=== PATIENT | female | born 1965 | race American Indian/Alaskan Native ===

== ENCOUNTER 2017-03-22 10:18 | Emergency (ER) | payer SELFPAY ==
[2017-03-22] MEDS ORDERED: SUBLIMAZE IV ONE (10:36)
[2017-03-22 11:11] LABS: Basophils % (Auto) 1.3 % (0.0-1.8); Eosinophils % (Auto) 1.6 % (0.0-4.3); Hematocrit 41.7 % (30.3-42.9); Hemoglobin 13.7 gm/dl (10.1-14.3); Mean Corpuscular HGB Conc 33 % (30-34); Mean Corpuscular Hemoglobin 28 pg (28-32); Mean Corpuscular Volume 84 fl (79-97); Platelet Count 214 K/mm3 (140-440); Red Blood Count 4.96 M/mm3 (3.65-5.03); Red Cell Distribution Width 15.9 % (13.2-15.2); White Blood Count 4.2 K/mm3 (4.5-11.0)
--- NOTE | 2017-03-22 11:19 | XRay Report ---
LEFT FOOT RADIOGRAPHS INDICATION: Left fifth metatarsal area pain. Forklift ran over left foot. COMPARISON: None similar. FINDINGS: AP, lateral and oblique left foot radiographs demonstrate intact bones, joints and soft tissues. Moderate plantar and small dorsal calcaneal spurs. Slight dorsal midfoot spurring as well. CONCLUSION: No acute left foot radiographic abnormality with degenerative spurring noted, as above. Thank you for the opportunity to participate in this patient's care.
[2017-03-22 11:20] LABS: Anion Gap 17 mmol/L; BUN/Creatinine Ratio 20; Blood Urea Nitrogen 10 mg/dL (7-17); Carbon Dioxide 26 mmol/L (22-30); Chloride 101.9 mmol/L (98-107); Glucose 82 mg/dL (65-100); Potassium 3.6 mmol/L (3.6-5.0); Sodium 141 mmol/L (137-145)
[2017-03-22] MEDS ORDERED: TENORMIN PO ONE (11:22)
[2017-03-22 11:23] LABS: INR 0.99 (0.87-1.13)
[2017-03-22 11:24] LABS: Partial Thromboplastin Time 35.3 Sec. (24.2-36.6)
[2017-03-22] MEDS ORDERED: NORCO 10/325 PO ONE (11:24)
--- NOTE | 2017-03-22 11:56 | Emergency Department Report ---
ED General Adult HPI - General Chief complaint: Extremity Injury, Lower Stated complaint: LT FRACTURED FOOT Time Seen by Provider: 03/22/17 10:30 Source: patient, EMS Mode of arrival: Stretcher Limitations: Physical Limitation - History of Present Illness Initial comments: Patient is a 51-year-old female past medical history of hypertension who presents with left foot pain. 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 She is complaining of severe pain in her left foot as a 10 out of 10. She hasn't tried putting weight on it but there is some swelling to the fifth distal mild tarsal. It is an achy type of pain that does not radiate. She didn't injure herself anywhere else she says moving her foot a lot makes it worse and nothing makes the pain better. Severity scale (0 -10): 6 - Related Data Previous Rx's Medication Instructions Recorded Last Taken Type Atenolol [Tenormin] 100 mg PO DAILY #30 tablet 07/11/14 07/27/15 Rx oxyCODONE /ACETAMINOPHEN [Percocet 1 - 2 tab PO Q6HR PRN #14 tablet 07/28/15 Unknown Rx 5/325] Acetaminophen 1,000 mg PO Q6HR PRN #30 capsule 03/22/17 Unknown Rx Allergies Allergy/AdvReac Type Severity Reaction Status Date / Time No Known Allergies Allergy Verified 07/11/14 02:32 ED Review of Systems ROS: Stated complaint: LT FRACTURED FOOT Other details as noted in HPI Constitutional: denies: chills, fever Eyes: denies: eye pain, eye discharge, vision change ENT: denies: ear pain, throat pain Respiratory: denies: cough, shortness of breath, wheezing Cardiovascular: denies: chest pain, palpitations Endocrine: no symptoms reported Gastrointestinal: denies: abdominal pain, nausea, diarrhea Genitourinary: denies: urgency, dysuria, discharge Musculoskeletal: as per HPI. denies: back pain, joint swelling, arthralgia Skin: denies: rash, lesions Neurological: denies: headache, weakness, paresthesias Psychiatric: denies: anxiety, depression Hematological/Lymphatic: denies: easy bleeding, easy bruising ED Past Medical Hx - Past Medical History Previous Medical History?: Yes Hx Hypertension: Yes Hx CVA: (TIA x 2) - Surgical History Additional Surgical History: x3 - Social History Smoking Status: Never Smoker Substance Use Type: None - Medications Home Medications: Home Medications Medication Instructions Recorded Confirmed Last Taken Type Atenolol [Tenormin] 100 mg PO DAILY #30 tablet 07/11/14 07/27/15 07/27/15 Rx oxyCODONE /ACETAMINOPHEN [Percocet 1 - 2 tab PO Q6HR PRN #14 tablet 07/28/15 Unknown Rx 5/325] Acetaminophen 1,000 mg PO Q6HR PRN #30 capsule 03/22/17 Unknown Rx ED Physical Exam - General Limitations: Physical Limitation General appearance: alert, in no apparent distress - Head Head exam: Present: atraumatic, normocephalic - Eye Eye exam: Present: normal appearance - ENT ENT exam: Present: mucous membranes moist - Neck Neck exam: Present: normal inspection - Respiratory Respiratory exam: Present: normal lung sounds bilaterally. Absent: respiratory distress - Cardiovascular Cardiovascular Exam: Present: regular rate, normal rhythm. Absent: systolic murmur, diastolic murmur, rubs, gallop - GI/Abdominal GI/Abdominal exam: Present: soft, normal bowel sounds - Extremities Exam Extremities exam: Present: other (swelling at distal left 5th metatarsal and swelling) - Back Exam Back exam: Present: normal inspection - Neurological Exam Neurological exam: Present: alert, oriented X3 - Psychiatric Psychiatric exam: Present: normal affect, normal mood - Skin Skin exam: Present: warm, dry, intact, normal color. Absent: rash ED Course Vital Signs 03/22/17 03/22/17 03/22/17 10:26 10:30 10:45 Pulse Rate Respiratory Rate Blood Pressure 225/119 232/124 Blood Pressure [Right] O2 Sat by Pulse 100 98 98 Oximetry 03/22/17 03/22/17 03/22/17 11:00 11:10 11:26 Pulse Rate 62 Respiratory 18 Rate Blood Pressure 216/106 206/114 Blood Pressure [Right] O2 Sat by Pulse 93 Oximetry 03/22/17 12:28 Pulse Rate 86 Respiratory 18 Rate Blood Pressure Blood Pressure 215/114 [Right] O2 Sat by Pulse 98 Oximetry ED Medical Decision Making - Lab Data Result diagrams: 03/22/17 10:45 03/22/17 10:45 Lab Results 03/22/17 03/22/17 03/22/17 Range/Units 10:45 10:45 10:45 WBC 4.2 L (4.5-11.0) K/mm3 RBC 4.96 (3.65-5.03) M/mm3 Hgb 13.7 (10.1-14.3) gm/dl Hct 41.7 (30.3-42.9) % MCV 84 (79-97) fl MCH 28 (28-32) pg MCHC 33 (30-34) % RDW 15.9 H (13.2-15.2) % Plt Count 214 (140-440) K/mm3 Lymph % (Auto) 32.1 (13.4-35.0) % [place] % (Auto) 7.9 H (0.0-7.3) % Eos % (Auto) 1.6 (0.0-4.3) % Baso % (Auto) 1.3 (0.0-1.8) % Lymph # 1.4 (1.2-5.4) K/mm3 [place] # 0.3 (0.0-0.8) K/mm3 Eos # 0.1 (0.0-0.4) K/mm3 Baso # 0.1 (0.0-0.1) K/mm3 Seg Neutrophils % 57.1 (40.0-70.0) % Seg Neutrophils # 2.4 (1.8-7.7) K/mm3 PT 13.6 (12.2-14.9) Sec. INR 0.99 (0.87-1.13) APTT 35.3 (24.2-36.6) Sec. Sodium 141 (137-145) mmol/L Potassium 3.6 (3.6-5.0) mmol/L Chloride 101.9 (98-107) mmol/L Carbon Dioxide 26 (22-30) mmol/L Anion Gap 17 mmol/L BUN 10 (7-17) mg/dL Creatinine 0.5 L (0.7-1.2) mg/dL Estimated GFR > 60 ml/min BUN/Creatinine Ratio 20 % Glucose 82 (65-100) mg/dL Calcium 9.0 (8.4-10.2) mg/dL - Radiology Data Radiology results: report reviewed, image reviewed Left foot x-ray: Shows no acute osseous abnormality left fifth metatarsal swelling - Medical Decision Making Chief medical diagnosis: Left fifth metatarsal or bone spur Differential diagnosis: Left fifth metatarsal fracture, left foot crush muscle injury I will get IV pain medicine, CBC, CMP, oral blood pressure medication, oral pain medication and x-ray of her left ankle. Patient has no fracture on x-ray was likely has just a bony spur I will send patient with postop shoe and oral pain medication and a work note. Discussed outpatient and she states that she will follow up with Dr. Arriola. Additional verbal discharge instructions were given. Critical care attestation.: If time is entered above; I have spent that time in minutes in the direct care of this critically ill patient, excluding procedure time. ED Disposition Clinical Impression: Left foot pain Foot contusion Qualifiers: Encounter type: initial encounter Laterality: left Qualified Code(s): S90.32XA - Contusion of left foot, initial encounter Disposition: - TO HOME OR SELFCARE Is pt being admited?: No Does the pt Need Aspirin: No Condition: Stable Instructions: Foot Contusion (ED) Prescriptions: Acetaminophen 1,000 mg PO Q6HR PRN #30 capsule PRN Reason: Pain Referrals: AMAN ARRIOLA MD [Staff Physician] - 3-5 Days
[2017-03-22 12:28] VITALS: BP 215/114
== END 2017-03-22 12:27 | disposition home or self-care (01) ==
LOC: ED 10:18
DX: S90.32XA Contusion of left foot, initial encounter (principal); I10 Essential (primary) hypertension; Z86.73 Personal history of transient ischemic attack (TIA), and cerebral infarction without residual deficits; W22.8XXA Striking against or struck by other objects, initial encounter; Y93.89 Activity, other specified; Y92.89 Other specified places as the place of occurrence of the external cause; Y99.8 Other external cause status
CPT/HCPCS: 36415; 73630; 80048; 85025; 85610; 85730; 96374; 99284; J3010

== ENCOUNTER 2019-09-14 19:16 | Inpatient (IN) | payer OTHER, SELFPAY ==
[2019-09-14] MEDS ORDERED: NITROGLYCERIN 2% OINT 1 GM TP ONE (19:33)
[2019-09-14] MEDS ORDERED: ASPIRIN 325 MG TAB PO ONE (19:33)
--- NOTE | 2019-09-14 19:40 | Emergency Department Report ---
HPI - General Chief Complaint: Chest Pain Time Seen by Provider: 09/14/19 19:19 - [facility] HPI: Room 1 The patient is a 54-year-old female present with a chief complaint of chest pain. Patient reportedly was in this ED last week with chest pain and went into V. fib arrest and was resuscitated. Patient went home on a LifeVest. The patient states today she developed substernal chest pain that was sharp and constant in nature associated with shortness of breath, nausea/vomiting and diaphoresis. ED Past Medical Hx - Past Medical History Previous Medical History?: Yes Hx Hypertension: Yes Hx CVA: Yes - Surgical History Additional Surgical History: 3 C-sections, lower extremity vascular surgery - Family History Family history: no significant - Social History Smoking Status: Former Smoker (None x3 months) Substance Use Type: None (Denies illicit drug use) - Medications Home Medications: Home Medications Medication Instructions Recorded Confirmed Last Taken Type Aspirin [Aspirin BABY CHEW TAB] 81 mg PO QDAY #30 tab.chew 02/06/13 12/20/13 12/13/13 Rx Clonidine HCl [Catapres] 0.1 mg PO BID 08/16/13 12/20/13 08/15/13 History atenoloL [Tenormin] 50 mg PO DAILY #60 tab 12/20/13 Unknown Rx ED Review of Systems ROS: Stated complaint: CHEST PAIN Other details as noted in HPI Constitutional: diaphoresis Eyes: denies: eye pain ENT: denies: throat pain Respiratory: shortness of breath Cardiovascular: chest pain Endocrine: no symptoms reported Gastrointestinal: nausea, vomiting Genitourinary: denies: dysuria Musculoskeletal: denies: back pain Neurological: denies: headache Physical Exam - Physical Exam Physical Exam: GENERAL: The patient is well-developed well-nourished female sitting on stretcher not appearing to be in acute distress. [] HEENT: Normocephalic. Atraumatic. Extraocular motions are intact. Patient has moist mucous membranes. NECK: Supple. Trachea midline CHEST/LUNGS: Clear to auscultation. There is no respiratory distress noted. HEART/CARDIOVASCULAR: Regular. There is no tachycardia. There is no gallop rub or murmur. ABDOMEN: Abdomen is soft, nontender. Patient has normal bowel sounds. There is no abdominal distention. SKIN: There is no rash. There is no edema. Open wounds to the right lower extremity NEURO: The patient is awake, alert, and oriented. The patient is cooperative. The patient has normal speech MUSCULOSKELETAL: There is no evidence of acute injury. ED Course - Reevaluation(s) Reevaluation #1: 09/14/19 19:47 Called to room by nursing. Patient had episode of unresponsiveness. Patient immediately responds after sternal rub. No ectopy or dysrhythmia noted on the monitor. No report of LifeVest shocking. Patient appeared dazed but states "I am good." Patient denies complaints Patient hypertensive and tachycardic. Labetalol 20 mg IV ordered - Consultations Consultation #1: 09/14/19 20:35 Cardiology paged 09/14/19 20:[address] Da Silva, including episodes of unresponsiveness, EKG and troponin ED Medical Decision Making - Lab Data Result diagrams: 09/14/19 19:53 09/14/19 19:53 Laboratory Tests 09/14/19 09/14/19 09/14/19 19:53 19:53 19:53 WBC 9.5 RBC 3.21 L Hgb 9.0 L Hct 27.8 L MCV 87 MCH 28 MCHC 32 RDW 17.3 H Plt Count 333 PT 15.8 H INR 1.24 H APTT 28.8 Sodium 140 Potassium 3.2 L Chloride 103.9 Carbon Dioxide 17 L Anion Gap 22 BUN 6 L Creatinine 0.8 Estimated GFR > 60 BUN/Creatinine Ratio 8 Glucose 111 H Calcium 8.4 Total Creatine Kinase 134 CK-MB (CK-2) 6.1 H CK-MB (CK-2) Rel Index 4.5 H Troponin T NT-Pro-B Natriuret Pep 09/14/19 19:53 WBC RBC Hgb Hct MCV MCH MCHC RDW Plt Count PT INR APTT Sodium Potassium Chloride Carbon Dioxide Anion Gap BUN Creatinine Estimated GFR BUN/Creatinine Ratio Glucose Calcium Total Creatine Kinase CK-MB (CK-2) CK-MB (CK-2) Rel Index Troponin T 1.370 H* NT-Pro-B Natriuret Pep 9859 H - EKG Data -: EKG Interpreted by Me EKG shows normal: sinus rhythm Rate: normal - EKG Data When compared to previous EKG there are: previous EKG unavailable Interpretation: other (ST depression in leads I, aVL, V3, V4, V5, V6) - Radiology Data Radiology results: report reviewed (Chest x-ray), image reviewed (Chest x-ray) interpreted by me: Chest x-ray-left lung haziness but no definite focal infiltrates. No pneumothorax Findings [facility] [address] [place] [address] XRay Report Signed Patient: JOSE VALENCIA MR# : [id number] : 1965 Acct:[id number] Age/Sex: 54 / F ADM Date: 09/14/19 Loc: ED Attending Dr: Ordering Physician: JOSE SHEEHAN MD Date of Service: 09/14/19 Procedure(s): XR chest 1V ap Accession Number(s): [id number] cc: JOSE SHEEHAN MD Fluoro Time In Minutes: CHEST 1 VIEW, 09/14/2019 6:50 PM CLINICAL INFORMATION/INDICATION: Chest pain COMPARISON: Chest radiograph, 02/02/2013 FI NDINGS: SUPPORT DEVICES: None. HEART: The cardiac silhouette is upper limits of normal in size. LUNGS/PLEURA: The lungs are clear of focal airspace disease or significant pleural effusion. ADDITIONAL FINDINGS: No additional acute findings. IMPRESSION: 1. No evidence of acute cardiopulmonary process. Signer Name: Funmilayo Mejia MD Signed: 09/14/2019 7:55 PM Workstation Name: [id number] Transcribed By: EB Dictated By: Funmilayo Mejia MD Electronically Authenticated By: Funmilayo Mejia MD Signed Date/Time: 09/14/191954 DD/ 53 TD/TT: - Differential Diagnosis ACS, pericarditis,, GERD, dysrhythmia Critical care attestation.: If time is entered above; I have spent that time in minutes in the direct care of this critically ill patient, excluding procedure time. ED Disposition Clinical Impression: Elevated troponin, Chest pain, Altered mental status Disposition: -09 OP ADMIT IP TO THIS HOSP Is pt being admited?: Yes Does the pt Need Aspirin: Yes Condition: Fair Instructions: Chest Pain (ED) Referrals: MCLEOD BIGGCITLALI STEWART MD [Primary Care Provider] - 3-5 Days Time of Disposition: 21:41 (Hospitalist paged (Dr. Kira Roque))
--- NOTE | 2019-09-14 20:00 | XRay Report ---
CHEST 1 VIEW, 09/14/2019 6:50 PM CLINICAL INFORMATION/INDICATION: Chest pain COMPARISON: Chest radiograph, 02/02/2013 FINDINGS: SUPPORT DEVICES: None. HEART: The cardiac silhouette is upper limits of normal in size. LUNGS/PLEURA: The lungs are clear of focal airspace disease or significant pleural effusion. ADDITIONAL FINDINGS: No additional acute findings. IMPRESSION: 1. No evidence of acute cardiopulmonary process. Signer Name: Funmilayo Mejia MD Signed: 09/14/2019 7:55 PM Workstation Name: [id number]
[2019-09-14 20:08] LABS: Hematocrit 27.8 % (30.3-42.9); Mean Corpuscular HGB Conc 32 % (30-34); Mean Corpuscular Volume 87 fl (79-97); Platelet Count 333 K/mm3 (140-440); Red Blood Count 3.21 M/mm3 (3.65-5.03); Red Cell Distribution Width 17.3 % (13.2-15.2)
[2019-09-14 20:14] LABS: INR 1.24 (0.87-1.13)
[2019-09-14 20:15] LABS: Partial Thromboplastin Time 28.8 Sec. (24.2-36.6)
[2019-09-14 20:24] LABS: Creatine Kinase MB 6.1 ng/mL (0.0-4.0)
[2019-09-14 20:25] LABS: BUN/Creatinine Ratio 8; Blood Urea Nitrogen 6 mg/dL (7-17); Calcium 8.4 mg/dL (8.4-10.2); Hemolysis Index 3
[2019-09-14 20:50] LABS: Chol/HDL Ratio 3.23 %
[2019-09-14 20:53] LABS: RBC Morphology Normal; Total Cells Counted 100
--- NOTE | 2019-09-14 23:13 | History and Physical Report ---
History of Present Illness History of present illness: 54-year-old woman with history of hypertension, CVA, CHF, coronary artery disease, peripheral vascular disease, status post recent cardiac arrest with LifeVest on was brought to the emergency room for evaluation. Patient complains of chest pain in the left chest which he describes as sharp pain, constant, intensity 5/10, no radiation, cannot identify exacerbating factors. Admits to nausea vomiting, shortness of breath. The patient was just discharged from the hospital 2 days ago where she came in for chest pain and had a V. fib cardiac arrest. After the cardiac arrest she is been having problems with her memory. She does not remember her hospital course or being hospitalized last month where she received a cardiac cath. ER physician stated that the patient had an episode of decreased responsiveness in the ER, responsive to sternal rub. patient will be admitted for chest pain evaluation Review Of Systems: Constitutional: no weight loss, fever, chills Ears, eyes, nose, mouth and throat: no nasal congestion, no nasal discharge, no sinus pressure, blurry vision, diplopia Neck: No neck pain or rigidity. Cardiovascular: No palpitations Respiratory: No shortness of breath, cough Gastrointestinal: No hematochezia Genitourinary : no dysuria, frequency Musculoskeletal: no muscle ache , joint pain Integumentary: no rash, no pruritis Neurological: no parathesias, focal weakness Endocrine: no cold or heat intolerance, no polyuria or polydipsia Hematologic/Lymphatic: no easy bruising, no easy bleeding, no gland swelling Allergic/Immunologic: no urticaria, no angioedema. PAST MEDICAL HISTORY: hypertension, CVA, CHF, coronary artery disease, peripheral vascular disease, status post recent cardiac arrest with LifeVest on PAST SURGICAL HISTORY: Femoropopliteal, fasciotomy SOCIAL HISTORY: Denies alcohol, tobacco, drugs FAMILY HISTORY: Hypertension PUI?: No Medications and Allergies Allergies Allergy/AdvReac Type Severity Reaction Status Date / Time No Known Allergies Allergy Verified 08/03/13 20:05 Home Medications Medication Instructions Recorded Confirmed Last Taken Type Clonidine HCl [Catapres] 0.3 mg PO BID 08/16/13 12/20/13 08/15/13 History Exam - Physical Exam Narrative exam: Gen. appearance: Patient lying in bed, no apparent distress HEENT: Normocephalic, atraumatic, pupils equally round and reactive to light, extraocular movement intact, and no sclericterus,. No JVD or thyromegaly or nodule,neck supple, no carotid bruit ,mucous membranes moist, no exudate or erythema Heart: S1, S2, regular rate and rhythm Lungs: Clear bilaterally, breathing comfortable Abdomen: Positive bowel sounds, nontender, nondistended, no organomegaly Extremity: Right leg with a large medial wound and is smaller on the lateral aspect of the leg, wound bed is clean no edema, cyanosis, clubbing Skin: No rash, nodules, warm, dry Neuro: Cranial nerves II to XII intact, speech is fluent, moves extremities, sensory intact - Constitutional Vitals: Temp Pulse Resp BP Pulse Ox 98.9 F 85 16 183/89 97 09/14/19 19:27 09/14/19 22:30 09/14/19 22:30 09/14/19 22:30 09/14/19 22:30 Results - Labs CBC & Chem 7: 09/14/19 19:53 09/14/19 19:53 Labs: Abnormal lab results 09/14/19 09/14/19 09/14/19 Range/Units 19:53 19:53 19:53 RBC 3.21 L (3.65-5.03) M/mm3 Hgb 9.0 L (10.1-14.3) gm/dl Hct 27.8 L (30.3-42.9) % RDW 17.3 H (13.2-15.2) % Monocytes % (Manual) 11.0 H (0.0-7.3) % Monocytes # (Manual) 1.0 H (0.0-0.8) K/mm3 PT 15.8 H (12.2-14.9) Sec. INR 1.24 H (0.87-1.13) Potassium 3.2 L (3.6-5.0) mmol/L Carbon Dioxide 17 L (22-30) mmol/L BUN 6 L (7-17) mg/dL Glucose 111 H (65-100) mg/dL CK-MB (CK-2) 6.1 H (0.0-4.0) ng/mL CK-MB (CK-2) Rel Index 4.5 H (0-4) Troponin T (0.00-0.029) ng/mL NT-Pro-B Natriuret Pep (0-900) pg/mL HDL Cholesterol (40-59) mg/dL 09/14/19 Range/Units 19:53 RBC (3.65-5.03) M/mm3 Hgb (10.1-14.3) gm/dl Hct (30.3-42.9) % RDW (13.2-15.2) % Monocytes % (Manual) (0.0-7.3) % Monocytes # (Manual) (0.0-0.8) K/mm3 PT (12.2-14.9) Sec. INR (0.87-1.13) Potassium (3.6-5.0) mmol/L Carbon Dioxide (22-30) mmol/L BUN (7-17) mg/dL Glucose (65-100) mg/dL CK-MB (CK-2) (0.0-4.0) ng/mL CK-MB (CK-2) Rel Index (0-4) Troponin T 1.370 H* (0.00-0.029) ng/mL NT-Pro-B Natriuret Pep 9859 H (0-900) pg/mL HDL Cholesterol 38 L (40-59) mg/dL - Imaging and Cardiology EKG: image reviewed Chest x-ray: report reviewed Assessment and Plan Assessment Chest pain/CAD Check cardiac enzymes, consult cardiology Continue her cardiac medications, start heparin drip Troponin trending up from discharge, it was 1.12 Lower extremity wounds Consult wound care Patient was discharged on oral antibiotics, restart these Episode of decreased responsiveness Consult neurology, check CT head Hypertension Continue outpatient medication, add IV hydralazine CHF, stable DVT prophylaxis
[2019-09-14] MEDS ORDERED: ONDANSETRON 4 MG/2 ML INJ IV PRN (23:31)
[2019-09-14] MEDS ORDERED: ACETAMINOPHEN 325 MG TAB PO PRN (23:31)
[2019-09-14] MEDS ORDERED: hydrALAZINE 20 MG/1 ML INJ IV PRN (23:42)
[2019-09-15 00:29] LABS: Creatine Kinase MB 5.6 ng/mL (0.0-4.0)
[2019-09-15 00:46] LABS: Amphetamine Screen,Urine PRESUMPTIVE NEGATIVE; Benzodiazepines Screen,Urine PRESUMPTIVE NEGATIVE; Cannabinoid Screen,Urine PRESUMPTIVE NEGATIVE; Cocaine Screen,Urine PRESUMPTIVE NEGATIVE; Methadone Screen,Urine PRESUMPTIVE NEGATIVE; Opiate Screen,Urine PRESUMPTIVE NEGATIVE
[2019-09-15] MEDS ORDERED: HEPARIN/ 0.45% NACL DRIP 25,000 UNIT/500 ML BAG IV SCH (01:00)
[2019-09-15 01:40] LABS: INR 1.2 (0.87-1.13); Partial Thromboplastin Time 30.6 Sec. (24.2-36.6)
[2019-09-15] MEDS ORDERED: IBUPROFEN 400 MG TAB PO ONE ×2 (01:46→01:47)
--- NOTE | 2019-09-15 03:35 | Cat Scan Report ---
CT HEAD WITHOUT CONTRAST INDICATION / CLINICAL INFORMATION: DECREASED RESPONSIVENESS. TECHNIQUE: All CT scans at this location are performed using CT dose reduction for ALARA by means of automated e xposure control. COMPARISON: CT dated 09/10/19 FINDINGS: HEMORRHAGE: None. EXTRA-AXIAL SPACES: Normal in size and morphology for the patient's age. VENTRICULAR SYSTEM: Normal in size and morphology for the patient's age. CEREBRAL PARENCHYMA: Left frontoparietal encephalomalacia is unchanged. No acute territorial infarct. MIDLINE SHIFT OR HERNIATION: None. CEREBELLUM / BRAINSTEM: No significant abnormality. ORBITS: Normal as visualized. SOFT TISSUES of HEAD: No significant abnormality. CALVARIUM: No significant abnormality. PARANASAL SINUSES / MASTOID AIR CELLS: Left sphenoid sinus mucous retention cyst is unchanged. ADDITIONAL FINDINGS: None. IMPRESSION: 1. No acute intracranial abnormality. . Chronic and age-related findings. No significant change. Signer Name: Juancarlos Singleton MD Signed: 09/15/2019 3:30 AM Workstation Name: [id number]
[2019-09-15] MEDS ORDERED: METOPROLOL TARTRATE 50 MG TAB ONE (04:03)
[2019-09-15] MEDS: METOPROLOL TARTRATE 50 MG TAB PO SCH ×2 (04:07→13:06)
[2019-09-15] MEDS ORDERED: ONDANSETRON 4 MG/2 ML INJ ONE (04:48)
[2019-09-15] MEDS ORDERED: HEPARIN/ 0.45% NACL DRIP 25,000 UNIT/500 ML BAG ONE (05:38)
[2019-09-15 05:45] LABS: Hematocrit 24.3 % (30.3-42.9); Hemoglobin 7.9 gm/dl (10.1-14.3); Mean Corpuscular HGB Conc 33 % (30-34); Mean Corpuscular Volume 87 fl (79-97); Platelet Count 283 K/mm3 (140-440); Red Blood Count 2.79 M/mm3 (3.65-5.03); Red Cell Distribution Width 17.1 % (13.2-15.2)
[2019-09-15] MEDS: VANCOMYCIN 250 MG/10 ML ORAL LIQD PO SCH ×3 (05:56→18:11)
[2019-09-15 06:51] LABS: Anisocytosis 1+; Band Neutrophils # (Manual) 0.1 K/mm3; Basophils % (Manual) 0 % (0.0-1.8); Eosinophils % (Manual) 0 % (0.0-4.3); Total Cells Counted 100
[2019-09-15 06:52] LABS: Platelet Estimate Consistent w Auto
[2019-09-15 06:57] LABS: Creatine Kinase MB 5.8 ng/mL (0.0-4.0)
[2019-09-15 07:01] LABS: BUN/Creatinine Ratio 8; Blood Urea Nitrogen 6 mg/dL (7-17); Hemolysis Index 0
--- NOTE | 2019-09-15 07:58 | Progress Note ---
Assessment and Plan Assessment and plan: Patient is a 54 yo woman with a history of hypertension, CHF, TIA and PAD who presented to [facility] ED with chest pains, SOB that started around 10 am day prior to admission. She recently had some type of procedure to the veins of her right leg about 1 week ago. Patient went into cardiac arrest due to V. fib. Patient underwent 2 rounds of ACLS protocol with 2 de-fibrillations and given Epinephrine, Amiodarone and pulse restored. It appears patient was in Atrial fibrillation with RVR and Amiodarone drip was started. Patient start having myoclonic jerks after. CTA chest IMPRESSION: 1. No evidence of pulmonary embolus or acute pulmonary disease. CT head without contrast IMPRESSION: 1. Chronic ischemic changes in the left parietal cortex. 2. No acute intracranial abnormality. 3. Left maxillary and sphenoid sinus disease. pCXR IMPRESSION: 1. No acute findings. 2. Satisfactory support device po sitioning. meds received so far: Etomidate/Rocuronium/heparin/mag sulfate/lopressor IV/Levophed/IVF/diprivan gtt/Amiodarone/rocephin/Versed recurrent CP after NSTEMI with Cardiac arrest: Cardiology is aware, treat medically for now, treat with IV heparin, ECHO Acute on chronic systolic heart failure poa: treat medically Acute Respiratory Failure, on MV via ETT: consult [facility] Afib with RVR: Echo and treat with IV Amiodarone, Xarelto DVT lower extermity by history on Xarelto Anemia with a drop in HCT: consult GI s/p prior Myoclonic jerks after Cardiac arrest on 09/10/19, due to Anoxic brain injury: koby stopped by Neurology, was unable to get EEG last admission due to glued on wig NSVT: Cardiology following Surgery on the right leg with wound VAC: Consult wound care, return to [facility] Hypokalemia: replete C. diffe colitis with +FOBT, poa: on oral vancomycin (maybe affordable issues), consult GI full code 09/11/19: Patient had cardiac arrest was intubated then later extubated on 09/10/19 currently awake and talking, her main compliant is diarrhea which was poa. Will send off for C.diffe as just underwent left lower extremity fasciotomy for gangrene and currently has bandage on medial lower left leg at [facility]. Will treat with empiric IV Flagyl for c.diffe. 09/12/19: 5 beat run of NSVT, replete potassium with IV magnesium, LifeVest pending, Cdiffe and FOBT uncollected because patient using bathroom on the bed without warning due to mental dysfunction, d/w RN 09/13/19: I D/C today, +C.diffe colitis, a/o x 3 today, mental health improving. Cleared for d/c per Cardiology. 09/15/19: Patient returns to ED with chest pains last night, she has 2 different account numbers, old medical record is [id number]; she is having cognitive issues since the NSTEMI cardiac arrest, so her memory is impaired. Period of unresponsiveness in ED, ?seizure related, will order EEG and consult Neurologist. I have ordered case management to combine medical records. I spoke with her pharmacy yesterday at [facility] and they had to order the oral Vancomycin, so she has not started on this therapy for c.diffe +FOBT (on old medical record), Consult GI for the anemia, on heparin IV drip, will stop, Await Cardiology evaluation. Replete potassium. It appears patient had a C in [facility] please see Dr. Da Silva's note under the old medical record number last admission. She has significant old right leg wound from recent Femoral bypass surgery at [facility] and her main compliant is leg pains. History Interval history: Patient was seen and examined. Follow-up on current diagnosis of chest pains. Overnight uneventful as no events directly reported to me. Imaging, nursing note, chart, labs and old chart reviewed. Discussed with patient. PUI?: No Hospitalist Physical - Physical exam Narrative exam: Gen: WDWN, NAD, Awake, Alert, Orientated but periods of confusion and poor memory recall. HEENT: NCAT, EOMI, PERRL, OP Clear Neck: supple, no adenopathy, no thyromegaly, no JVD CVS/Heart: RRR, normal S1S2, pulses present bilaterally Chest/Lungs: CTA B, Symmetrical chest expansion, good air entry bilaterally GI/Abdomen: soft, NTND, good bowel sounds, no guarding or rebound /Bladder: no suprapubic tenderness, no CVA or paraspinal tenderness Extermity/Skin: no c/c/e, no obvious rash MSK: FROM x 4 Neuro: CN 2-12 grossly intact, no new focal deficits Psych: calm - Constitutional Vitals: Temp Pulse Resp BP Pulse Ox 98.9 F 70 11 L 186/95 100 09/14/19 19:27 09/15/19 06:15 09/15/19 06:15 09/15/19 06:15 09/15/19 06:15 Results - Labs CBC & Chem 7: 09/15/19 04:57 09/15/19 04:57 Labs: Laboratory Last Values WBC 7.5 K/mm3 (4.5-11.0) 09/15/19 04:57 RBC 2.79 M/mm3 (3.65-5.03) L 09/15/19 04:57 Hgb 7.9 gm/dl (10.1-14.3) L 09/15/19 04:57 Hct 24.3 % (30.3-42.9) L 09/15/19 04:57 MCV 87 fl (79-97) 09/15/19 04:57 MCH 28 pg (28-32) 09/15/19 04:57 MCHC 33 % (30-34) 09/15/19 04:57 RDW 17.1 % (13.2-15.2) H 09/15/19 04:57 Plt Count 283 K/mm3 (140-440) 09/15/19 04:57 Add Manual Diff Complete 09/15/19 04:57 Total Counted 100 09/15/19 04:57 Seg Neuts % (Manual) 61.0 % (40.0-70.0) 09/15/19 04:57 Band Neutrophils % 1.0 % 09/15/19 04:57 Lymphocytes % (Manual) 31.0 % (13.4-35.0) 09/15/19 04:57 Reactive Lymphs % (Man) 0 % 09/15/19 04:57 Monocytes % (Manual) 6.0 % (0.0-7.3) 09/15/19 04:57 Eosinophils % (Manual) 0 % (0.0-4.3) 09/15/19 04:57 Basophils % (Manual) 0 % (0.0-1.8) 09/15/19 04:57 Metamyelocytes % 1.0 % 09/15/19 04:57 Myelocytes % 0 % 09/15/19 04:57 Promyelocytes % 0 % 09/15/19 04:57 Blast Cells % 0 % 09/15/19 04:57 Nucleated RBC % 2.0 % (0.0-0.9) H 09/15/19 04:57 Seg Neutrophils # Man 4.6 K/mm3 (1.8-7.7) 09/15/19 04:57 Band Neutrophils # 0.1 K/mm3 09/15/19 04:57 Lymphocytes # (Manual) 2.3 K/mm3 (1.2-5.4) 09/15/19 04:57 Abs React Lymphs (Man) 0.0 K/mm3 09/15/19 04:57 Monocytes # (Manual) 0.5 K/mm3 (0.0-0.8) 09/15/19 04:57 Eosinophils # (Manual) 0.0 K/mm3 (0.0-0.4) 09/15/19 04:57 Basophils # (Manual) 0.0 K/mm3 (0.0-0.1) 09/15/19 04:57 Metamyelocytes # 0.1 K/mm3 09/15/19 04:57 Myelocytes # 0.0 K/mm3 09/15/19 04:57 Promyelocytes # 0.0 K/mm3 09/15/19 04:57 Blast Cells # 0.0 K/mm3 09/15/19 04:57 WBC Morphology Not Reportable 09/15/19 04:57 Hypersegmented Neuts Not Reportable 09/15/19 04:57 Hyposegmented Neuts Not Reportable 09/15/19 04:57 Hypogranular Neuts Not Reportable 09/15/19 04:57 Smudge Cells Not Reportable 09/15/19 04:57 Toxic Granulation Not Reportable 09/15/19 04:57 Toxic Vacuolation Not Reportable 09/15/19 04:57 Dohle Bodies Not Reportable 09/15/19 04:57 Pelger-Huet Anomaly Not Reportable 09/15/19 04:57 Chantelle Rods Not Reportable 09/15/19 04:57 Platelet Estimate Consistent w auto 09/15/19 04:57 Clumped Platelets Not Reportable 09/15/19 04:57 Plt Clumps, EDTA Not Reportable 09/15/19 04:57 Large Platelets Not Reportable 09/15/19 04:57 Giant Platelets Not Reportable 09/15/19 04:57 Platelet Satelliting Not Reportable 09/15/19 04:57 Plt Morphology Comment Not Reportable 09/15/19 04:57 RBC Morphology Not Reportable 09/15/19 04:57 Dimorphic RBCs Not Reportable 09/15/19 04:57 Polychromasia Few 09/15/19 04:57 Hypochromasia Not Reportable 09/15/19 04:57 Poikilocytosis Not Reportable 09/15/19 04:57 Anisocytosis 1+ 09/15/19 04:57 Microcytosis Not Reportable 09/15/19 04:57 Macrocytosis Not Reportable 09/15/19 04:57 Spherocytes Not Reportable 09/15/19 04:57 Pappenheimer Bodies Not Reportable 09/15/19 04:57 Sickle Cells Not Reportable 09/15/19 04:57 Target Cells Not Reportable 09/15/19 04:57 Tear Drop Cells Not Reportable 09/15/19 04:57 Ovalocytes Not Reportable 09/15/19 04:57 Helmet Cells Not Reportable 09/15/19 04:57 [place] Bodies Not Reportable 09/15/19 04:57 [place] Rings Not Reportable 09/15/19 04:57 [place] Cells Not Reportable 09/15/19 04:57 Bite Cells Not Reportable 09/15/19 04:57 Crenated Cell Not Reportable 09/15/19 04:57 Elliptocytes Not Reportable 09/15/19 04:57 Acanthocytes (Spur) Not Reportable 09/15/19 04:57 Rouleaux Not Reportable 09/15/19 04:57 Hemoglobin C Crystals Not Reportable 09/15/19 04:57 Schistocytes Not Reportable 09/15/19 04:57 Malaria parasites Not Reportable 09/15/19 04:57 Kenneth Bodies Not Reportable 09/15/19 04:57 Hem Pathologist Commnt No 09/15/19 04:57 PT 15.4 Sec. (12.2-14.9) H 09/15/19 01:08 INR 1.20 (0.87-1.13) H 09/15/19 01:08 APTT 30.6 Sec. (24.2-36.6) 09/15/19 01:08 Sodium 141 mmol/L (137-145) 09/15/19 04:57 Potassium 3.1 mmol/L (3.6-5.0) L 09/15/19 04:57 Chloride 108.7 mmol/L (98-107) H 09/15/19 04:57 Carbon Dioxide 22 mmol/L (22-30) 09/15/19 04:57 Anion Gap 13 mmol/L 09/15/19 04:57 BUN 6 mg/dL (7-17) L 09/15/19 04:57 Creatinine 0.8 mg/dL (0.7-1.2) 09/15/19 04:57 Estimated GFR > 60 ml/min 09/15/19 04:57 BUN/Creatinine Ratio 8 % 09/15/19 04:57 Glucose 109 mg/dL (65-100) H 09/15/19 04:57 Calcium 8.0 mg/dL (8.4-10.2) L 09/15/19 04:57 Total Creatine Kinase 115 units/L (30-135) 09/15/19 04:57 CK-MB (CK-2) 5.8 ng/mL (0.0-4.0) H 09/15/19 04:57 CK-MB (CK-2) Rel Index 5.0 (0-4) H 09/15/19 04:57 Troponin T 1.570 ng/mL (0.00-0.029) H* 09/15/19 04:57 NT-Pro-B Natriuret Pep 9859 pg/mL (0-900) H 09/14/19 19:53 Triglycerides 101 mg/dL (2-149) 09/14/19 19:53 Cholesterol 123 mg/dL (50-199) 09/14/19 19:53 LDL Cholesterol Direct 66 mg/dL (50-130) 09/14/19 19:53 HDL Cholesterol 38 mg/dL (40-59) L 09/14/19 19:53 Cholesterol/HDL Ratio 3.23 % 09/14/19 19:53 Urine Opiates Screen Presumptive negative 09/14/19 23:42 Urine Methadone Screen Presumptive negative 09/14/19 23:42 Ur Barbiturates Screen Presumptive negative 09/14/19 23:42 Ur Phencyclidine Scrn Presumptive negative 09/14/19 23:42 Ur Amphetamines Screen Presumptive negative 09/14/19 23:42 U Benzodiazepines Scrn Presumptive negative 09/14/19 23:42 Urine Cocaine Screen Presumptive negative 09/14/19 23:42 U Marijuana (THC) Screen Presumptive negative 09/14/19 23:42 Drugs of Abuse Note Disclamer 09/14/19 23:42 Luong/IV: IV Catheter Type [Right Hand] INT / Saline Lock Active Medications - Current Medications Current Medications: Generic Name Dose Route Start Last Admin Trade Name Freq PRN Reason Stop Dose Admin Acetaminophen 650 mg 09/14/19 23:31 Tylenol PO Q4H PRN Pain MILD(1-3)/Fever >100.5/MILLS Amiodarone HCl 200 mg 09/15/19 10:00 Cordarone PO BID [facility] Atorvastatin Calcium 40 mg 09/15/19 22:00 Lipitor PO QHS [facility] Clopidogrel Bisulfate 75 mg 09/15/19 10:00 Plavix PO QDAY [facility] Hydralazine HCl 5 mg 09/14/19 23:42 Apresoline IV Q6H PRN Hypertension Heparin Sodium/Sodium Chloride 25,000 unit in 500 mls @ 20 mls/hr 09/15/19 01:00 09/15/19 05:51 Heparin/ 0.45% Nacl-25,000 Unit/500 Ml IV 1,000 units/hr TITRATE PRABHU 20 mls/hr Administration Protocol 1,000 UNITS/HR Lisinopril 10 mg 09/15/19 10:00 Zestril PO QDAY [facility] Metoprolol Tartrate 50 mg 09/15/19 04:00 09/15/19 04:07 Metoprolol PO 50 mg Q8HR PRABHU Administration Ondansetron HCl 4 mg 09/14/19 23:31 09/15/19 04:53 Zofran IV 4 mg Q8H PRN Administration Nausea And Vomiting Sodium Chloride 10 ml 09/15/19 10:00 Sodium Chloride Flush Syringe 10 Ml IV BID PRABHU Sodium Chloride 10 ml 09/14/19 23:31 Sodium Chloride Flush Syringe 10 Ml IV PRN PRN LINE FLUSH Vancomycin HCl 125 mg 09/15/19 06:00 09/15/19 05:56 Vancomycin Po PO 125 mg Q6HR PRABHU Administration
[2019-09-15] MEDS ORDERED: POTASSIUM CHLORIDE ER 20 MEQ TAB PO ONE (09:00)
[2019-09-15] MEDS: AMIODARONE 200 MG TAB PO SCH ×2 (09:08→21:42)
[2019-09-15] MEDS: CLOPIDOGREL 75 MG TAB PO SCH (09:08)
[2019-09-15] MEDS: LISINOPRIL 10 MG TAB PO SCH (09:08)
[2019-09-15 09:14] LABS: Eosinophils # (Auto) 0.1 K/mm3 (0.0-0.4); Eosinophils % (Auto) 1.2 % (0.0-4.3); Monocytes # (Auto) 0.9 K/mm3 (0.0-0.8); Monocytes % (Auto) 12.2 % (0.0-7.3)
--- NOTE | 2019-09-15 09:59 | Consultation ---
History of Present Illness Consult date: 09/15/19 Consult reason: chest pain History of present illness: This is a 54-year old woman with multiple medical problems. Patient has a history of lower extremity venous thromboembolism for which she is on Xarelto. Patient has peripheral arterial disease with prior femoropopliteal bypass with recent left lower extremity fasciotomy for gangrene. Patient was recommended for medical therapy for coronary disease of a very small caliber left posterior d escending branch by cardiac cath at [facility] one month ago. Otherwise, there was mild non-obstructive irregularities in the very tortuous, left dominant coronary system. Patient was discharged from this hospital less than 48 hours ago. She suffered respiratory arrest in the emergency department of unclear etiology. During ACLS protocol patient developed ventricular fibrillation followed by transient atrial fibrillation. This was treated with amiodarone and metoprolol. A CT scan of the chest was negative for PE. An echocardiogram showed mild left ventricular dysfunction with ejection fraction of 40 to 45%. She was placed in a Lifevest before discharge. Patient returned to the emergency department with report of chest pain. Cardiac consultation has been requested. Patient report chest pain while showering. She denies chest pain during exertion. There was no unusual shortness of breath. In the emergency department it's reported she had repeated episodes of unresponsiveness. Patient immediately responded after sternal rub. There were no arrhythmia noted on telemetry. There were no report of Lifevest discharge. 12 lead ECG is sinus rhythm with LVH. Noted persistently elevated blood pressure since admission with a systolic BP ranging 160-210. Medications and Allergies Allergies Allergy/AdvReac Type Severity Reaction Status Date / Time No Known Allergies Allergy Verified 08/03/13 20:05 Home Medications Medication Instructions Recorded Confirmed Last Taken Type Clonidine HCl [Catapres] 0.3 mg PO BID 08/16/13 09/15/19 08/15/13 History AtorvaSTATin [Lipitor] 40 mg PO QHS 09/15/19 09/15/19 Unknown History Clopidogrel [Plavix] 75 mg PO DAILY 09/15/19 09/15/19 Unknown History Gabapentin 100 mg PO Q8HR 09/15/19 09/15/19 Unknown History ISOSORBIDE MONOnitrate [Imdur ER] 30 mg PO DAILY 09/15/19 09/15/19 Unknown History NIFEdipine [Nifedipine ER] 90 mg PO DAILY 09/15/19 09/15/19 Unknown History Rivaroxaban [Xarelto] 09/15/19 Unknown History Rivaroxaban [Xarelto] 15 mg PO BID 09/15/19 09/15/19 Unknown History Sulfamethoxazole/Trimethoprim 1 each PO BID 09/15/19 09/15/19 Unknown History [Bactrim DS TAB] Active Meds: Active Medications Acetaminophen (Tylenol) 650 mg PO Q4H PRN PRN Reason: Pain MILD(1-3)/Fever >100.5/MILLS Amiodarone HCl (Cordarone) 200 mg PO BID [facility] Last Admin: 09/15/19 09:08 Dose: 200 mg Documented by: Atorvastatin Calcium (Lipitor) 40 mg PO QHS [facility] Clopidogrel Bisulfate (Plavix) 75 mg PO QDAY [facility] Last Admin: 09/15/19 09:08 Dose: 75 mg Documented by: Hydralazine HCl (Apresoline) 5 mg IV Q6H PRN PRN Reason: Hypertension Heparin Sodium/Sodium Chloride (Heparin/ 0.45% Nacl-25,000 Unit/500 Ml) 25,000 unit in 500 mls @ 20 mls/hr IV TITRATE [facility]; Protocol Last Admin: 09/15/19 05:51 Dose: 1,000 units/hr, 20 mls/hr Documented by: Isosorbide Mononitrate (Imdur) 30 mg PO QDAY [facility] Last Admin: 09/15/19 09:24 Dose: 30 mg Documented by: Lisinopril (Zestril) 10 mg PO QDAY [facility] Last Admin: 09/15/19 09:08 Dose: 10 mg Documented by: Metoprolol Tartrate (Metoprolol) 50 mg PO Q8HR [facility] Last Admin: 09/15/19 04:07 Dose: 50 mg Documented by: Ondansetron HCl (Zofran) 4 mg IV Q8H PRN PRN Reason: Nausea And Vomiting Last Admin: 09/15/19 04:53 Dose: 4 mg Documented by: Sodium Chloride (Sodium Chloride Flush Syringe 10 Ml) 10 ml IV BID [facility] Last Admin: 09/15/19 09:09 Dose: 10 ml Documented by: Sodium Chloride (Sodium Chloride Flush Syringe 10 Ml) 10 ml IV PRN PRN PRN Reason: LINE FLUSH Vancomycin HCl (Vancomycin Po) 125 mg PO Q6HR [facility] Last Admin: 09/15/19 05:56 Dose: 125 mg Documented by: Physical Examination Vital Signs Temp Pulse Resp BP Pulse Ox 98.9 F 94 H 11 L 167/96 100 09/14/19 19:27 09/14/19 19:27 09/14/19 19:27 09/14/19 19:27 09/14/19 19:27 General appearance: no acute distress Cardiac: Positive: Reg Rate and Rhythm Extremities: Present: Other (wound) Results 09/15/19 04:57 09/15/19 04:57 Cardiac Enzymes 09/14/19 09/14/19 09/15/19 Range/Units 19:53 23:49 04:57 CK-MB (CK-2) 6.1 H 5.6 H 5.8 H (0.0-4.0) ng/mL Coagulation 09/14/19 09/15/19 Range/Units 19:53 01:08 PT 15.8 H 15.4 H (12.2-14.9) Sec. INR 1.24 H 1.20 H (0.87-1.13) APTT 28.8 30.6 (24.2-36.6) Sec. Lipids 09/14/19 Range/Units 19:53 Triglycerides 101 (2-149) mg/dL Cholesterol 123 (50-199) mg/dL HDL Cholesterol 38 L (40-59) mg/dL Cholesterol/HDL Ratio 3.23 % CBC 09/14/19 09/15/19 Range/Units 19:53 04:57 WBC 9.5 7.5 (4.5-11.0) K/mm3 RBC 3.21 L 2.79 L (3.65-5.03) M/mm3 Hgb 9.0 L 7.9 L (10.1-14.3) gm/dl Hct 27.8 L 24.3 L (30.3-42.9) % Plt Count 333 283 (140-440) K/mm3 [place] # 0.9 H (0.0-0.8) K/mm3 Eos # 0.1 (0.0-0.4) K/mm3 Baso # 0.0 (0.0-0.1) K/mm3 Comprehensive Metabolic Panel 09/14/19 09/15/19 Range/Units 19:53 04:57 Sodium 140 141 (137-145) mmol/L Potassium 3.2 L 3.1 L (3.6-5.0) mmol/L Chloride 103.9 108.7 H (98-107) mmol/L Carbon Dioxide 17 L 22 (22-30) mmol/L BUN 6 L 6 L (7-17) mg/dL Creatinine 0.8 0.8 (0.7-1.2) mg/dL Glucose 111 H 109 H (65-100) mg/dL Calcium 8.4 8.0 L (8.4-10.2) mg/dL Assessment and Plan Chest pain Recent transient VFib and afib following resp arrest in the ED on amiodarone and metoprolol for suppression echocardiogram done last week: mild left ventricular dysfunction with ejection fraction of 40 to 45%. NSTEMI [facility] at [facility] 08/2019: small caliber left posterior descending branch disease recommended for medical therapy. Prior DVT -on Xarelto as an outpatient PAD s/p recent femoral bypass and recent fasciotomy with dehiscence for gangrene Hypertension Recommendations: Optimal blood pressure management. Continue plavix, statin and beta blockers. We will increase imdur to 60mg for medical management of for her small vessel coronary artery disease.
[2019-09-15] MEDS ORDERED: ENOXAPARIN 40 MG/0.4 ML INJ SUB-Q SCH (10:00)
[2019-09-15] MEDS ORDERED: ENOXAPARIN 30 MG/0.3 ML INJ SUB-Q SCH (10:00)
[2019-09-15] MEDS: HYDROcodone/ACETAMINOPHEN 5-325 MG TAB PO PRN ×2 (13:04→22:49)
--- NOTE | 2019-09-15 14:38 | Consultation ---
INDICATION: 1. Clostridium difficile colitis. 2. Anemia. HISTORY OF PRESENT ILLNESS: The patient is a 54-year-old black female with history of hypertension, CHF, coronary artery disease, CVA, peripheral vascular disease, status post SC and cardiac arrest recently. The patient reports that over the last week or two she is having diarrhea. The patient was diagnosed with C. diff. She is unclear as to whether or not when the patient was recently discharged whether or not she was taking medicines for this. The patient reports no history of GI evaluation and management in the past and reports she has never had a colonoscopy. She presented now with episode of decreased responsiveness to the Emergency Room and was admitted with chest pain. She reports she still has some loose stools. She denies any obvious signs of bleeding. She denies any other specific GI complaints. PAST MEDICAL HISTORY: 1. Hypertension. 2. CVA. 3. CHF. 4. Coronary artery disease. 5. Peripheral vascular disease. 6. Status post recent cardiac arrest with LifeVest. PAST SURGICAL HISTORY: Fasciotomy. MEDICATIONS: Reviewed and updated in the chart. ALLERGIES: No known drug allergies. SOCIAL HISTORY: Denies alcohol, tobacco, or drug abuse. FAMILY HISTORY: Negative for colon cancer, IBD, or liver disease. REVIEW OF SYSTEMS: GENERAL: Reports some weakness. HEENT: No visual complaints or tinnitus. PULMONARY: No shortness of breath. CARDIOVASCULAR: Reports chest pain. GASTROINTESTINAL: Reports some diarrhea. All points of 13-point review of systems otherwise negative. PHYSICAL EXAMINATION: VITAL SIGNS: Temperature of 98.4, pulse 85, respirations 18, and blood pressure 168/80. GENERAL: Fairly nourished female in no acute distress. HEENT: Pupils are equal, round and reactive. PULMONARY: Clear. CARDIOVASCULAR: Regular rate and rhythm. ABDOMEN: Soft. SKIN: No obvious rashes. LABORATORY DATA: Pertinent for white count 7.5, hemoglobin and hematocrit of 7.9 and 24.3, and platelet count of 283. Chem-7 pertinent for potassium of 3.1, otherwise within normal limits. Troponin of 1.6. ASSESSMENT AND PLAN: A 54-year-old female with multiple past medical history including recently cardiac arrest, reportedly was diagnosed with Clostridium difficile during the admission, but was not taking the medicine when discharged and now been seen by GI for diarrhea. The patient presented with chest pain. She is undergoing cardiac evaluation and management. The patient reports she has no history of GI bleed in past, but was noted to be anemic on admission. She denies ever having a colonoscopy or endoscopy. Given her cardiac and other issues, would want to be conservative at this time with no signs of active bleeding. PLAN: 1. Follow hematocrit and transfuse as needed. 2. PPI daily. 3. Cardiac evaluation in progress and we will follow results. 4. The patient started on vancomycin q.i.d. for C. diff and will follow results. 5. We will consider adding Questran based on progress. 6. No plans to scope at this time. 7. We will follow. JOB# [id number] CAB/NTS
--- NOTE | 2019-09-15 15:57 | Consultation ---
History of Present Illness Chief complaint: Episode of decreased responsiveness History of present illness: ER physician stated that the patient had an episode of decreased responsiveness in the ER, responsive to sternal rub. patient will be admitted for chest pain evaluation. 54-year-old woman with history of hypertension, CVA, CHF, coronary artery disease, peripheral vascular disease, status post recent cardiac arrest with LifeVest on was brought to the emergency room for evaluation. Patient complains of chest pain in the left chest which he describes as sharp pain, constant, intensity 5/10, no radiation, cannot identify exacerbating factors. Admits to nausea vomiting, shortness of breath. The patient was just discharged from the hospital 2 days ago where she came in for chest pain and had a V. fib cardiac arrest. After the cardiac arrest she is been having problems with her memory. She does not remember her hospital course or being hospitalized last month where she received a cardiac cath. ER physician stated that the patient had an episode of decreased responsiveness in the ER, responsive to sternal rub. patient will be admitted for chest pain evaluation Review Of Systems: Constitutional: no weight loss, fever, chills Ears, eyes, nose, mouth and throat: no nasal congestion, no nasal discharge, no sinus pressure, blurry vision, diplopia Neck: No neck pain or rigidity. Cardiovascular: No palpitations Respiratory: No shortness of breath, cough Gastrointestinal: No hematochezia Genitourinary : no dysuria, frequency Musculoskeletal: no muscle ache , joint pain Integumentary: no rash, no pruritis Neurological: no parathesias, focal weakness Endocrine: no cold or heat intolerance, no polyuria or polydipsia Hematologic/Lymphatic: no easy bruising, no easy bleeding, no gland swelling Allergic/Immunologic: no urticaria, no angioedema. PAST MEDICAL HISTORY: hypertension, CVA, CHF, coronary artery disease, peripheral vascular disease, status post recent cardiac arrest with LifeVest on PAST SURGICAL HISTORY: Femoropopliteal, fasciotomy SOCIAL HISTORY: Denies alcohol, tobacco, drugs FAMILY HISTORY: Hypertension Medications and Allergies Allergies Allergy/AdvReac Type Severity Reaction Status Date / Time No Known Allergies Allergy Verified 08/03/13 20:05 Home Medications Medication Instructions Recorded Confirmed Last Taken Type Clonidine HCl [Catapres] 0.3 mg PO BID 08/16/13 09/15/19 08/15/13 History AtorvaSTATin [Lipitor] 40 mg PO QHS 04/13/20 04/13/20 Unknown History Clopidogrel [Plavix] 75 mg PO DAILY 09/15/19 09/15/19 Unknown History Gabapentin 100 mg PO Q8HR 09/15/19 09/15/19 Unknown History ISOSORBIDE MONOnitrate [Imdur ER] 30 mg PO DAILY 09/15/19 09/15/19 Unknown History Melatonin 5MG TAB 09/15/19 Unknown History NIFEdipine [Nifedipine ER] 90 mg PO DAILY 09/15/19 09/15/19 Unknown History Rivaroxaban [Xarelto] 09/15/19 Unknown History Rivaroxaban [Xarelto] 15 mg PO BID 09/15/19 09/15/19 Unknown History Sulfamethoxazole/Trimethoprim 1 each PO BID 09/15/19 09/15/19 Unknown History [Bactrim DS TAB] Active Meds: Active Medications Acetaminophen (Tylenol) 650 mg PO Q4H PRN PRN Reason: Pain MILD(1-3)/Fever >100.5/MILLS Acetaminophen/Hydrocodone Bitart ([place] 5/325) 2 each PO Q4H PRN PRN Reason: Pain, Moderate (4-6) Last Admin: 09/15/19 13:04 Dose: 2 each Documented by: Amiodarone HCl (Cordarone) 200 mg PO BID [facility] Last Admin: 09/15/19 09:08 Dose: 200 mg Documented by: Atorvastatin Calcium (Lipitor) 40 mg PO QHS [facility] Clopidogrel Bisulfate (Plavix) 75 mg PO QDAY [facility] Last Admin: 09/15/19 09:08 Dose: 75 mg Documented by: Hydralazine HCl (Apresoline) 5 mg IV Q6H PRN PRN Reason: Hypertension Isosorbide Mononitrate (Imdur) 60 mg PO QDAY [facility] Levetiracetam (Keppra) 500 mg PO BID [facility] Lisinopril (Zestril) 10 mg PO QDAY [facility] Last Admin: 09/15/19 09:08 Dose: 10 mg Documented by: Metoprolol Tartrate (Metoprolol) 50 mg PO Q8HR [facility] Last Admin: 09/15/19 13:06 Dose: 50 mg Documented by: Ondansetron HCl (Zofran) 4 mg IV Q8H PRN PRN Reason: Nausea And Vomiting Last Admin: 09/15/19 04:53 Dose: 4 mg Documented by: Sodium Chloride (Sodium Chloride Flush Syringe 10 Ml) 10 ml IV BID [facility] Last Admin: 09/15/19 09:09 Dose: 10 ml Documented by: Sodium Chloride (Sodium Chloride Flush Syringe 10 Ml) 10 ml IV PRN PRN PRN Reason: LINE FLUSH Vancomycin HCl (Vancomycin Po) 125 mg PO Q6HR [facility] Last Admin: 09/15/19 11:30 Dose: 125 mg Documented by: Physical Examination - Vital Signs Vital Signs: Vital Signs Temp Pulse Resp BP Pulse Ox 98.9 F 94 H 11 L 167/96 100 09/14/19 19:27 09/14/19 19:27 09/14/19 19:27 09/14/19 19:27 09/14/19 19:27 - Additional Exam Additional Exam: Gen. appearance: Patient lying in bed, no apparent distress HEENT: Normocephalic, atraumatic, pupils equally round and reactive to light, extraocular movement intact, and no sclericterus,. No JVD or thyromegaly or nodule,neck supple, no carotid bruit ,mucous membranes moist, no exudate or erythema Heart: S1, S2, regular rate and rhythm Lungs: Clear bilaterally, breathing comfortable Abdomen: Positive bowel sounds, nontender, nondistended, no organomegaly Neurologic examination The patient is alert awake oriented x2. Language exam is normal. Motor examination seems to have good power upper and lower extremities no arm drift. Results - Laboratory Findings CBC and BMP: 09/15/19 04:57 09/15/19 04:57 Abnormal Lab Findings: Abnormal Labs 09/14/19 09/14/19 09/14/19 19:53 19:53 19:53 RBC 3.21 L Hgb 9.0 L Hct 27.8 L RDW 17.3 H [place] % (Auto) [place] # Monocytes % (Manual) 11.0 H Nucleated RBC % Monocytes # (Manual) 1.0 H PT 15.8 H INR 1.24 H Potassium 3.2 L Chloride Carbon Dioxide 17 L BUN 6 L Glucose 111 H Calcium CK-MB (CK-2) 6.1 H CK-MB (CK-2) Rel Index 4.5 H Troponin T NT-Pro-B Natriuret Pep HDL Cholesterol 09/14/19 09/14/19 09/15/19 19:53 23:49 01:08 RBC Hgb Hct RDW [place] % (Auto) [place] # Monocytes % (Manual) Nucleated RBC % Monocytes # (Manual) PT 15.4 H INR 1.20 H Potassium Chloride Carbon Dioxide BUN Glucose Calcium CK-MB (CK-2) 5.6 H CK-MB (CK-2) Rel Index 4.8 H Troponin T 1.370 H* 1.550 H* NT-Pro-B Natriuret Pep 9859 H HDL Cholesterol 38 L 09/15/19 09/15/19 09/15/19 04:57 04:57 04:57 RBC 2.79 L Hgb 7.9 L Hct 24.3 L RDW 17.1 H [place] % (Auto) 12.2 H [place] # 0.9 H Monocytes % (Manual) Nucleated RBC % 2.0 H Monocytes # (Manual) PT INR Potassium 3.1 L Chloride 108.7 H Carbon Dioxide BUN 6 L Glucose 109 H Calcium 8.0 L CK-MB (CK-2) 5.8 H CK-MB (CK-2) Rel Index 5.0 H Troponin T 1.570 H* NT-Pro-B Natriuret Pep HDL Cholesterol Assessment and Plan The patient was less responsive in the ER when she came in. Initially she was complaining of chest pain. CT brain shows old left-sided large frontoparietal area encephalomalacia because of old stroke. She has history of atrial fibrillation. She also history of cardiac arrest for which after she was discharged 2 days back. The patient looks pretty good at this time she is alert awake and the examination is pretty good. There is a high probability that she may had a seizure while she was in the ER. 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 Plan I would start her on Keppra 500 mg p.o. twice daily. The EEG is awaited. A normal EEG does not rule out epilepsy. Also she will be continued on antiplatelets and statin. The question is whether to put her on anticoagulants. And not sure if she has been on anticoagulation which probably she was not. It needs to be reexplored the reasons that why she was not on anticoagulation and if there is no contraind ication then anticoagulation may be started. Thank you
[2019-09-15] MEDS: levETIRAcetam 500 MG TAB PO SCH (21:42)
[2019-09-16] MEDS: VANCOMYCIN 250 MG/10 ML ORAL LIQD PO SCH ×4 (00:29→17:47)
[2019-09-16] MEDS: METOPROLOL TARTRATE 50 MG TAB PO SCH ×4 (00:29→21:36)
[2019-09-16] MEDS: HYDROcodone/ACETAMINOPHEN 5-325 MG TAB PO PRN ×4 (02:14→21:35)
[2019-09-16] MEDS: CLOPIDOGREL 75 MG TAB PO SCH (09:34)
[2019-09-16] MEDS: LISINOPRIL 10 MG TAB PO SCH (09:34)
[2019-09-16] MEDS: levETIRAcetam 500 MG TAB PO SCH ×2 (09:34→21:36)
[2019-09-16] MEDS: AMIODARONE 200 MG TAB PO SCH ×2 (09:35→21:36)
--- NOTE | 2019-09-16 10:14 | Progress Note ---
Assessment and Plan Chest pain Brief loss of consciousness -Neurology is following which required arousable by sternal rub Recent transient VFib and afib following resp arrest in the ED on amiodarone and metoprolol for suppression echocardiogram done last week: mild left ventricular dysfunction with ejection fraction of 40 to 45%. wears Lifevest as an outpatient NSTEMI [facility] 08/2019: small caliber left posterior descending branch disease recommended for medical therapy. Prior DVT -on Xarelto as an outpatient PAD s/p recent femoral bypass and recent fasciotomy with dehiscence for gangrene Hypertension Recommend: Continue medical management of for her small vessel coronary artery disease. Subjective Date of service: 09/16/19 Interval history: Patient is resting in bed comfortably. No cardiac events reported. PUI?: No Objective Vital Signs Temp Pulse Resp BP BP Pulse Ox 09/16/19 09:34 63 169/76 09/16/19 08:30 98.0 F 63 18 169/76 98 09/16/19 06:15 68 184/84 09/16/19 04:49 98.0 F 63 18 171/79 99 09/16/19 00:30 98.4 F 77 18 157/78 96 09/16/19 00:29 77 157/78 09/16/19 00:25 98 F 78 168/78 09/15/19 19:50 98.0 F 74 18 183/84 100 09/15/19 16:50 186/95 09/15/19 16:41 186/95 09/15/19 16:31 186/95 09/15/19 16:21 186/95 09/15/19 16:10 186/95 09/15/19 16:01 255 H 186/95 09/15/19 15:57 186/95 09/15/19 13:06 85 168/87 09/15/19 11:32 98.4 F 85 18 168/87 100 - Physical Examination General: No Apparent Distress HEENT: Positive: PERRL Neck: Positive: trachea midline Cardiac: Positive: Reg Rate and Rhythm Extremities: Present: Other (wound) - Imaging and Cardiology EKG: image reviewed
--- NOTE | 2019-09-16 10:59 | Gastroenterology Progress Note ---
Assessment and Plan 1. LGI: pt w/ recent diarrhea and C. diff - reports diarrhea improving on Vanco po - continue current meds and diet 2. Anemia: noted anemia, denies signs obvious blood loss - cbc pending today - given cardiac issues, C. diff no plans for colonoscopy or other intervention and would prefer to do as outpt when stable - continue follow labs - will follow Subjective Date of service: 09/16/19 Interval history: - reports diarrhea improved, denies other specific GI complaints PUI?: No Objective - Constitutional Vitals: Temp Pulse Resp BP Pulse Ox 98.0 F 63 18 169/76 98 09/16/19 08:30 09/16/19 09:34 09/16/19 08:30 09/16/19 09:34 09/16/19 08:30 General appearance: no acute distress - EENT Eyes: PERRL - Respiratory Respiratory: bilateral: CTA - Cardiovascular Rhythm: regular Heart Sounds: Present: S1 & S2 - Gastrointestinal General gastrointestinal: Present: soft, non-tender, non-distended - Labs CBC & Chem 7: 09/15/19 04:57 09/15/19 04:57 Labs: Laboratory Results - last 24 hr 09/15/19 11:23 Heparin Anti-Xa Level 0.39
--- NOTE | 2019-09-16 11:16 | Progress Note ---
Assessment and Plan Anemia with a drop in HCT: consult GI, medical mx for h/o C. def Recurrent CP after NSTEMI with Cardiac arrest: - Cardiology is aware, treat medically for now, Acute on chronic systolic heart failure poa: treat medically Afib with RVR: treat with Amiodarone, hold AC for possible GI bleed DVT lower extermity by history on Xarelto outpt Possible seizure with unresponsiveness - restarted keppra Surgery on the right leg with wound VAC: Consult wound care, return to [facility] for f/u Hypokalemia: replete, check Mg C. diffe colitis with +FOBT, poa: on oral vancomycin (maybe affordable issues), consult GI full code Brief history: 54-year-old woman with history of hypertension, CVA, CHF, coronary artery disease, peripheral vascular disease, status post recent cardiac arrest with LifeVest on was brought to the emergency room for evaluation of chest pain. The patient was just discharged from the hospital 2 days ago after being treated for V. fib cardiac arrest. After the cardiac arrest she is been having problems with her memory. She does not remember her hospital course or being hospitalized last month where she received a cardiac cath. ER physician stated that the patient had an episode of decreased responsiveness in the ER, responsive to sternal rub. neurology recommended to place on keppra for possible seizure. Cardiology recommended medical Mx for chest pain. Being monitored for low h/h. Patient on vancomycin po for recent h/o c. def Physical exam: GENERAL: well-developed and well-nourished AAF lying on bed appeared to be in no discomfort. HEENT: Normocephalic. Atraumatic. No conjunctival congestion or icterus. Patient has moist mucous membranes. NECK: Supple. Trachea midline. CHEST/LUNGS: Clear to auscultated bilaterally, breathing nonlabored. No wheezes crackles or rhonchi. HEART/CARDIOVASCULAR: Regular in rate and rhythm. S1 and S2 positive. ABDOMEN: Abdomen is soft, nontender. Patient has normal bowel sounds. SKIN: There is no rash. Warm and dry. NEURO: No focal motor deficit. Follows command. MUSCULOSKELETAL: No joint effusion or tenderness. EXTRIMITY: No edema, no cyanosis or clubbing. PSYCH: Cooperative. Subjective Date of service: 09/16/19 Interval history: Patient seen and examined. Medical records and medication list reviewed. No acute event overnight noted by the RN. Patient still complains of chest pain but no difficulty breathing. Patient is tolerating diet. No active bleeding episode Discussed plan of care at bedside with patient. PUI?: No Objective - Constitutional Vitals: Vital Signs - 12hr 09/16/19 09/16/19 09/16/19 00:25 00:29 00:30 Temperature 98 F 98.4 F Pulse Rate 78 77 77 Respiratory 18 Rate Blood Pressure 157/78 Blood Pressure 168/78 157/78 [Left] O2 Sat by Pulse 96 Oximetry 09/16/19 09/16/19 09/16/19 04:49 06:15 08:30 Temperature 98.0 F 98.0 F Pulse Rate 63 68 63 Respiratory 18 18 Rate Blood Pressure 171/79 184/84 169/76 Blood Pressure [Left] O2 Sat by Pulse 99 98 Oximetry 09/16/19 09/16/19 09/16/19 09:00 09:34 10:50 Temperature 98.4 F Pulse Rate 63 63 61 Respiratory 18 Rate Blood Pressure 169/76 162/74 Blood Pressure [Left] O2 Sat by Pulse 96 Oximetry - Labs CBC & Chem 7: 09/15/19 04:57 09/15/19 04:57
--- NOTE | 2019-09-16 13:02 | Progress Note ---
Assessment and Plan The patient was less responsive in the ER when she came in. Initially she was complaining of chest pain. CT brain shows old left-sided large frontoparietal area encephalomalacia because of old stroke. She has history of atrial fibrillation. She also history of cardiac arrest for which after she was discharged 2 days back. The patient looks pretty good at this time she is alert awake and the examination is pretty good. There is a high probability that she may had a seizure while she was in the ER. 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 Plan Was started on Keppra 500 mg p.o. twice daily. The EEG can be done as an outpatient.. Even if the EEG is normal the patient should be continued on Keppra.. Also she will be continued on antiplatelets and statin. The question is whether to put her on anticoagulants. And not sure if she has been on anticoagulation which probably she was not. It needs to be reexplored the reasons that why she was not on anticoagulation and if there is no contraindication then anticoagulation may be started. Cardiology is on board.. No further neurological intervention at this time. Signing of the patient from neurology service at this time please call neurology whenever required. Thank you. Subjective Interval history: No new neurological symptoms since admission. ER physician stated that the patient had an episode of decreased responsiveness in the ER, responsive to sternal rub. patient will be admitted for chest pain evaluation. 54-year-old woman with history of hypertension, CVA, CHF, coronary artery disease, peripheral vascular disease, status post recent cardiac arrest with LifeVest on was brought to the emergency room for evaluation. Patient complains of chest pain in the left chest which he describes as sharp pain, constant, intensity 5/10, no radiation, cannot identify exacerbating factors. Admits to nausea vomiting, shortness of breath. The patient was just discharged from the hospital 2 days ago where she came in for chest pain and had a V. fib cardiac arrest. After the cardiac arrest she is been having problems with her memory. She does not remember her hospital course or being hospitalized last month where she received a cardiac cath. ER physician stated that the patient had an episode of decreased responsiveness in the ER, responsive to sternal rub. patien t will be admitted for chest pain evaluation Review Of Systems: Constitutional: no weight loss, fever, chills Ears, eyes, nose, mouth and throat: no nasal congestion, no nasal discharge, no sinus pressure, blurry vision, diplopia Neck: No neck pain or rigidity. Cardiovascular: No palpitations Respiratory: No shortness of breath, cough Gastrointestinal: No hematochezia Genitourinary : no dysuria, frequency Musculoskeletal: no muscle ache , joint pain Integumentary: no rash, no pruritis Neurological: no parathesias, focal weakness Endocrine: no cold or heat intolerance, no polyuria or polydipsia Hematologic/Lymphatic: no easy bruising, no easy bleeding, no gland swelling Allergic/Immunologic: no urticaria, no angioedema. PAST MEDICAL HISTORY: hypertension, CVA, CHF, coronary artery disease, peripheral vascular disease, status post recent cardiac arrest with LifeVest on PAST SURGICAL HISTORY: Femoropopliteal, fasciotomy SOCIAL HISTORY: Denies alcohol, tobacco, drugs FAMILY HISTORY: Hypertension Medications and Allergies Allergies Allergy/AdvReac Type Severity Reaction Status Date / Time No Known Allergies Allergy Verified 08/03/13 20:05 Home Medications Medication Instructions Recorded Confirmed Last Taken Type Clonidine HCl [Catapres] 0.3 mg PO BID 08/16/13 09/15/19 08/15/13 History AtorvaSTATin [Lipitor] 40 mg PO QHS 09/15/19 09/15/19 Unknown History Clopidogrel [Plavix] 75 mg PO DAILY 09/15/19 09/15/19 Unknown History Gabapentin 100 mg PO Q8HR 09/15/19 09/15/19 Unknown History ISOSORBIDE MONOnitrate [Imdur ER] 30 mg PO DAILY 09/15/19 09/15/19 Unkno wn History Melatonin 5MG TAB 09/15/19 Unknown History NIFEdipine [Nifedipine ER] 90 mg PO DAILY 09/15/19 09/15/19 Unknown History Rivaroxaban [Xarelto] 09/15/19 Unknown History Rivaroxaban [Xarelto] 15 mg PO BID 09/15/19 09/15/19 Unknown History Sulfamethoxazole/Trimethoprim 1 each PO BID 09/15/19 09/15/19 Unknown History [Bactrim DS TAB] Gen. appearance: Patient lying in bed, no apparent distress HEENT: Normocephalic, atraumatic, pupils equally round and reactive to light, extraocular movement intact, and no sclericterus,. No JVD or thyromegaly or nodule,neck supple, no carotid bruit ,mucous membranes moist, no exudate or erythema Heart: S1, S2, regular rate and rhythm Lungs: Clear bilaterally, breathing comfortable Abdomen: Positive bowel sounds, nontender, nondistended, no organomegaly Neurologic examination The patient is alert awake oriented x2. Language exam is normal. Motor examination seems to have good power upper and lower extremities no arm drift Review of systems 10 point review of system obtained and all is negative except that is that in the history of present illness PUI?: No Objective - Vital Sign Vital Signs - 12hr 09/16/19 09/16/19 09/16/19 04:49 06:15 08:30 Temperature 98.0 F 98.0 F Pulse Rate 63 68 63 Respiratory 18 18 Rate Blood Pressure 171/79 184/84 169/76 O2 Sat by Pulse 99 98 Oximetry 09/16/19 09/16/19 09/16/19 09:00 09:34 10:50 Temperature 98.4 F Pulse Rate 63 63 61 Respiratory 18 Rate Blood Pressure 169/76 162/74 O2 Sat by Pulse 96 Oximetry - Laboratory Findings CBC and BMP: 09/15/19 04:57 09/15/19 04:57 Abnormal Lab Findings: Abnormal Labs 09/14/19 09/14/19 09/14/19 19:53 19:53 19:53 RBC 3.21 L Hgb 9.0 L Hct 27.8 L RDW 17.3 H [place] % (Auto) [place] # Monocytes % (Manual) 11.0 H Nucleated RBC % Monocytes # (Manual) 1.0 H PT 15.8 H INR 1.24 H Potassium 3.2 L Chloride Carbon Dioxide 17 L BUN 6 L Glucose 111 H Calcium CK-MB (CK-2) 6.1 H CK-MB (CK-2) Rel Index 4.5 H Troponin T NT-Pro-B Natriuret Pep HDL Cholesterol 09/14/19 09/14/19 09/15/19 19:53 23:49 01:08 RBC Hgb Hct RDW [place] % (Auto) [place] # Monocytes % (Manual) Nucleated RBC % Monocytes # (Manual) PT 15.4 H INR 1.20 H Potassium Chloride Carbon Dioxide BUN Glucose Calcium CK-MB (CK-2) 5.6 H CK-MB (CK-2) Rel Index 4.8 H Troponin T 1.370 H* 1.550 H* NT-Pro-B Natriuret Pep 9859 H HDL Cholesterol 38 L 09/15/19 09/15/19 09/15/19 04:57 04:57 04:57 RBC 2.79 L Hgb 7.9 L Hct 24.3 L RDW 17.1 H [place] % (Auto) 12.2 H [place] # 0.9 H Monocytes % (Manual) Nucleated RBC % 2.0 H Monocytes # (Manual) PT INR Potassium 3.1 L Chloride 108.7 H Carbon Dioxide BUN 6 L Glucose 109 H Calcium 8.0 L CK-MB (CK-2) 5.8 H CK-MB (CK-2) Rel Index 5.0 H Troponin T 1.570 H* NT-Pro-B Natriuret Pep HDL Cholesterol
[2019-09-16 13:25] LABS: BUN/Creatinine Ratio 9; Blood Urea Nitrogen 6 mg/dL (7-17); Calcium 7.7 mg/dL (8.4-10.2); Hemolysis Index 5
[2019-09-16] MEDS ORDERED: MAGNESIUM SULFATE 2 GM/50 ML BAG IV ONE (23:14)
[2019-09-17] MEDS: VANCOMYCIN 250 MG/10 ML ORAL LIQD PO SCH ×3 (00:26→14:17)
[2019-09-17] MEDS ORDERED: MORPHINE 4 MG/1 ML INJ IV PRN (01:58)
[2019-09-17] MEDS: MORPHINE 4 MG/1 ML INJ IV PRN ×2 (02:21→10:29)
[2019-09-17 05:09] LABS: Hematocrit 23.7 % (30.3-42.9); Hemoglobin 7.8 gm/dl (10.1-14.3); Mean Corpuscular HGB Conc 33 % (30-34); Mean Corpuscular Volume 89 fl (79-97); Platelet Count 336 K/mm3 (140-440); Red Blood Count 2.66 M/mm3 (3.65-5.03); Red Cell Distribution Width 17.9 % (13.2-15.2)
[2019-09-17] MEDS: METOPROLOL TARTRATE 50 MG TAB PO SCH ×2 (05:29→14:18)
[2019-09-17 05:34] LABS: BUN/Creatinine Ratio 11; Blood Urea Nitrogen 8 mg/dL (7-17); Calcium 7.5 mg/dL (8.4-10.2); Hemolysis Index 13
[2019-09-17 06:30] LABS: Anisocytosis 1+; Band Neutrophils # (Manual) 0.3 K/mm3; Basophils % (Manual) 0 % (0.0-1.8); Platelet Estimate Consistent w Auto; Total Cells Counted 100
--- NOTE | 2019-09-17 10:03 | Progress Note ---
Assessment and Plan Chest pain Brief loss of consciousness -Neurology is following which required arousable by sternal rub Recent transient VFib and afib following resp arrest in the ED on amiodarone and metoprolol for suppression echocardiogram done last week: mild left ventricular dysfunction with ejection fraction of 40 to 45%. wears Lifevest as an outpatient NSTEMI [facility] at [facility] 08/2019: small caliber left posterior descending branch disease recommended for medical therapy. Prior DVT -on Xarelto as an outpatient PAD s/p recent femoral bypass and recent fasciotomy with dehiscence for gangrene Hypertension Recommend: Continue current cardiac management. Otherwise, conservative cardiac management. Subjective Date of service: 09/17/19 Interval history: Patient is resting in bed comfortably. No cardiac events reported. PUI?: No Objective Vital Signs Temp Pulse Resp BP BP Pulse Ox 09/17/19 07:37 98.7 F 68 18 172/79 97 09/17/19 06:24 98 F 78 18 158/68 99 09/17/19 05:29 66 155/75 09/16/19 23:59 98.9 F 66 20 155/75 97 09/16/19 21:36 67 141/66 09/16/19 20:40 68 09/16/19 19:42 98.4 F 67 18 141/66 98 09/16/19 16:13 97.9 F 59 L 18 140/68 98 09/16/19 15:06 63 09/16/19 14:08 75 138/60 97 09/16/19 10:50 98.4 F 61 18 162/74 96 - Physical Examination General: No Apparent Distress HEENT: Positive: PERRL Neck: Positive: trachea midline Cardiac: Positive: Reg Rate and Rhythm Neuro: Positive: Grossly Intact Extremities: Present: Other (wound) - Labs and Meds CBC 09/17/19 Range/Units 04:38 WBC 8.2 (4.5-11.0) K/mm3 RBC 2.66 L (3.65-5.03) M/mm3 Hgb 7.8 L (10.1-14.3) gm/dl Hct 23.7 L (30.3-42.9) % Plt Count 336 (140-440) K/mm3 Comprehensive Metabolic Panel 09/16/19 09/17/19 Range/Units 12:02 04:38 Sodium 141 141 (137-145) mmol/L Potassium 3.5 L 3.7 (3.6-5.0) mmol/L Chloride 105.1 107.4 H (98-107) mmol/L Carbon Dioxide 21 L 22 (22-30) mmol/L BUN 6 L 8 (7-17) mg/dL Creatinine 0.7 0.7 (0.7-1.2) mg/dL Glucose 95 96 (65-100) mg/dL Calcium 7.7 L 7.5 L (8.4-10.2) mg/dL
[2019-09-17] MEDS: CLOPIDOGREL 75 MG TAB PO SCH (10:10)
[2019-09-17] MEDS: LISINOPRIL 10 MG TAB PO SCH (10:10)
[2019-09-17] MEDS: levETIRAcetam 500 MG TAB PO SCH (10:10)
[2019-09-17] MEDS: AMIODARONE 200 MG TAB PO SCH (10:10)
--- NOTE | 2019-09-17 13:29 | Discharge Summary ---
Providers - Providers Date of Admission: 09/15/19 13:10 Date of discharge: 09/17/19 Attending physician: ZAN VILLANUEVA 09/14/19 20:41 Consult to Physician [CONS] Urgent Comment: Dr. Adam spoke with Dr. Fagan @ 2022 Consulting Provider: LUZMA FAGAN Physician Instructions: Reason For Exam: Chest pain 09/14/19 23:41 Consult to Wound/ET Nurse [CONS] Routine Reason For Exam: wound eval 09/15/19 07:49 Consult to Case Management [CONS] Routine Services Needed at Discharge: Other Notified:: case management Additional Physician Instructions: Please combined patient other medical record number of [id number]. I do not know why patient has 2 medical record numbers 09/15/19 08:19 Consult to Physician [CONS] Routine Comment: Consulting Provider: AUTUMN OSMAN Physician Instructions: Reason For Exam: anemia work up, c.diff colitis, on xarelto 09/15/19 13:39 Consult to Physician [CONS] Routine Comment: Consulting Provider: PERICO BARRAZA Physician Instructions: Reason For Exam: ?sz episodes, need EEG Primary care physician: [facility], Hospitalization Condition: Fair Hospital course: 54-year-old woman with history of hypertension, CVA, CHF, coronary artery disease, peripheral vascular disease, status post recent cardiac arrest with LifeVest on was brought to the emergency room for evaluation of chest pain. The patient was just discharged from the hospital 2 days ago after being treated for V. fib cardiac arrest. After the cardiac arrest she is been having problems with her memory. She does not remember her hospital course or being hospitalized last month where she received a cardiac cath. ER physician stated that the patient had an episode of decreased responsiveness in the ER, responsive to sternal rub. Neurology recommended to place on keppra for possible seizure. Cardiology recommended medical Mx for chest pain. She was monitored for low h/h. Patient was continued on vancomycin po for recent h/o c. def. Her H&H remained stable, cardiology recommended to continue medical management, neurology recommended EEG as an outpatient and to continue Keppra for now. Patient was then discharged home in stable condition with outpatient follow-up. Radiological data: CT head: 1. No acute intracranial abnormality. . Chronic and age-related findings. No significant change. Chest x-ray: No acute cardiopulmonary process. Discharge diagnosis: Anemia with a drop in HCT: consulted GI, medical mx for h/o C. def Recurrent CP after NSTEMI with Cardiac arrest: - Cardiology is aware, treat medically for now, Acute on chronic systolic heart failure poa: treat medically. Recent transient VFib and afib following resp arrest in the ED: on amiodarone and metoprolol for suppression DVT lower extermity by history on Xarelto outpt Possible seizure with unresponsiveness - restarted keppra Surgery on the right leg with wound VAC: Consult wound care, return to [facility] for f/u Hypokalemia and hypomagnesemia: repleted C. diffe colitis with +FOBT, poa: on oral vancomycin (maybe affordable issues) full code Physical exam: GENERAL: well-developed and well-nourished AAF lying on bed appeared to be in no discomfort. HEENT: Normocephalic. Atraumatic. No conjunctival congestion or icterus. Patient has moist mucous membranes. NECK: Supple. Trachea midline. CHEST/LUNGS: Clear to auscultated bilaterally, breathing nonlabored. No wheezes crackles or rhonchi. HEART/CARDIOVASCULAR: Regular in rate and rhythm. S1 and S2 positive. ABDOMEN: Abdomen is soft, nontender. Patient has normal bowel sounds. SKIN: There is no rash. Warm and dry. NEURO: No focal motor deficit. Follows command. MUSCULOSKELETAL: No joint effusion or tenderness. EXTRIMITY: No edema, no cyanosis or clubbing. PSYCH: Cooperative. Disposition: DC-01 TO HOME OR SELFCARE Time spent for discharge: 34 minutes Core Measure Documentation - Palliative Care Palliative Care/ Comfort Measures: Not Applicable - Core Measures Any of the following diagnoses?: heart failure - Heart Failure Discharge Requirements WAYNE/ARB for LVSD if EF <40%: Yes Beta mayela at discharge: Yes Exam - Constitutional Vitals: Temp Pulse Resp BP Pulse Ox 98.9 F 76 18 170/65 97 09/17/19 11:43 09/17/19 11:43 09/17/19 11:43 09/17/19 11:43 09/17/19 11:43 Plan Activity: advance as tolerated, fall precautions Weight Bearing Status: Non-Weight Bearing Diet: low fat, low salt Special Instructions: restrict fluid intake to (1200 cc per day), record daily BP diary Additional Instructions: Please follow-up with neurology outpatient for EEG. repeat CBC in one week Follow up with: [facility] MD ABDI [Primary Care Provider] - 3-5 Days AL LYON MD [Staff Physician] - 7 Days Prescriptions: levETIRAcetam [Keppra TAB] 500 mg PO BID #60 tablet
[2019-09-17 14:19] VITALS: BP 160/80
--- NOTE | 2019-09-17 16:13 | Gastroenterology Progress Note ---
Assessment and Plan GI: diarrhea stable - complete C. diff treatment as outpt - follow up fo anemia as outpt and decide as to scope - ok to d/c from GI standpoint - will sign off Subjective Date of service: 09/17/19 Interval history: - no GI complaints at this time PUI?: No Objective - Constitutional Vitals: Temp Pulse Resp BP Pulse Ox 98.9 F 90 18 160/80 97 09/17/19 11:43 09/17/19 14:18 09/17/19 11:43 09/17/19 14:18 09/17/19 11:43 General appearance: no acute distress - EENT Eyes: PERRL - Respiratory Respiratory: bilateral: CTA - Cardiovascular Rhythm: regular Heart Sounds: Present: S1 & S2 - Gastrointestinal General gastrointestinal: Present: soft, non-tender, non-distended - Labs CBC & Chem 7: 09/17/19 04:38 09/17/19 04:38 Labs: Laboratory Results - last 24 hr 09/17/19 09/17/19 09/17/19 00:14 04:38 04:38 WBC 8.2 RBC 2.66 L Hgb 7.8 L Hct 23.7 L MCV 89 MCH 29 MCHC 33 RDW 17.9 H Plt Count 336 Add Manual Diff Complete Total Counted 100 Seg Neuts % (Manual) 50.0 Band Neutrophils % 4.0 Lymphocytes % (Manual) 28.0 Reactive Lymphs % (Man) 0 Monocytes % (Manual) 14.0 H Eosinophils % (Manual) 4.0 Basophils % (Manual) 0 Metamyelocytes % 0 Myelocytes % 0 Promyelocytes % 0 Blast Cells % 0 Nucleated RBC % 1.0 H Seg Neutrophils # Man 4.1 Band Neutrophils # 0.3 Lymphocytes # (Manual) 2.3 Abs React Lymphs (Man) 0.0 Monocytes # (Manual) 1.1 H Eosinophils # (Manual) 0.3 Basophils # (Manual) 0.0 Metamyelocytes # 0.0 Myelocytes # 0.0 Promyelocytes # 0.0 Blast Cells # 0.0 WBC Morphology Not Reportable Hypersegmented Neuts Not Reportable Hyposegmented Neuts Not Reportable Hypogranular Neuts Not Reportable Smudge Cells Not Reportable Toxic Granulation Not Reportable Toxic Vacuolation Not Reportable Dohle Bodies Not Reportable Pelger-Huet Anomaly Not Reportable Chantelle Rods Not Reportable Platelet Estimate Consistent w auto Clumped Platelets Not Reportable Plt Clumps, EDTA Not Reportable Large Platelets Not Reportable Giant Platelets Not Reportable Platelet Satelliting Not Reportable Plt Morphology Comment Not Reportable RBC Morphology Not Reportable Dimorphic RBCs Not Reportable Polychromasia Not Reportable Hypochromasia Not Reportable Poikilocytosis Not Reportable Anisocytosis 1+ Microcytosis Not Reportable Macrocytosis Not Reportable Spherocytes Not Reportable Pappenheimer Bodies Not Reportable Sickle Cells Not Reportable Target Cells Not Reportable Tear Drop Cells Not Reportable Ovalocytes Not Reportable Helmet Cells Not Reportable [place] Bodies Not Reportable [place] Rings Not Reportable Ebony Cells Not Reportable Bite Cells Not Reportable Crenated Cell Not Reportable Elliptocytes Not Reportable Acanthocytes (Spur) Not Reportable Rouleaux Not Reportable Hemoglobin C Crystals Not Reportable Schistocytes Not Reportable Malaria parasites Not Reportable Kenneth Bodies Not Reportable Hem Pathologist Commnt No Sodium 141 Potassium 3.7 Chloride 107.4 H Carbon Dioxide 22 Anion Gap 15 BUN 8 Creatinine 0.7 Estimated GFR > 60 BUN/Creatinine Ratio 11 Glucose 96 POC Glucose 193 H Calcium 7.5 L Nasal Screen MRSA (PCR) 09/17/19 05:30 WBC RBC Hgb Hct MCV MCH MCHC RDW Plt Count Add Manual Diff Total Counted Seg Neuts % (Manual) Band Neutrophils % Lymphocytes % (Manual) Reactive Lymphs % (Man) Monocytes % (Manual) Eosinophils % (Manual) Basophils % (Manual) Metamyelocytes % Myelocytes % Promyelocytes % Blast Cells % Nucleated RBC % Seg Neutrophils # Man Band Neutrophils # Lymphocytes # (Manual) Abs React Lymphs (Man) Monocytes # (Manual) Eosinophils # (Manual) Basophils # (Manual) Metamyelocytes # Myelocytes # Promyelocytes # Blast Cells # WBC Morphology Hypersegmented Neuts Hyposegmented Neuts Hypogranular Neuts Smudge Cells Toxic Granulation Toxic Vacuolation Dohle Bodies Pelger-Huet Anomaly Chantelle Rods Platelet Estimate Clumped Platelets Plt Clumps, EDTA Large Platelets Giant Platelets Platelet Satelliting Plt Morphology Comment RBC Morphology Dimorphic RBCs Polychromasia Hypochromasia Poikilocytosis Anisocytosis Microcytosis Macrocytosis Spherocytes Pappenheimer Bodies Sickle Cells Target Cells Tear Drop Cells Ovalocytes Helmet Cells [place] Bodies [place] Rings Ebony Cells Bite Cells Crenated Cell Elliptocytes Acanthocytes (Spur) Rouleaux Hemoglobin C Crystals Schistocytes Malaria parasites Kenneth Bodies Hem Pathologist Commnt Sodium Potassium Chloride Carbon Dioxide Anion Gap BUN Creatinine Estimated GFR BUN/Creatinine Ratio Glucose POC Glucose Calcium Nasal Screen MRSA (PCR) Negative
--- NOTE | 2019-10-23 06:50 | Consultation ---
ADDENDUM REFERRING PHYSICIAN: Mary Anne Schilling M.D. JOB# [id number] [facility]
== END 2019-09-17 15:30 | disposition home or self-care (01) | DRG 280 ==
LOC: ED 19:16 → UNDOADMOB 23:12 → 4A 23:12 → OBSVTOIN 09-15 13:10 → MERGE 09-15 13:10
PROVIDERS: ADMIT Internal Medicine; ATTEND Internal Medicine
DX: I21.4 Non-ST elevation (NSTEMI) myocardial infarction (principal); I50.23 Acute on chronic systolic (congestive) heart failure; J96.00 Acute respiratory failure, unspecified whether with hypoxia or hypercapnia; I47.2 Ventricular tachycardia; A04.72 Enterocolitis due to Clostridium difficile, not specified as recurrent; Z86.73 Personal history of transient ischemic attack (TIA), and cerebral infarction without residual deficits; Z87.891 Personal history of nicotine dependence; Z79.82 Long term (current) use of aspirin; I11.0 Hypertensive heart disease with heart failure; I73.9 Peripheral vascular disease, unspecified; D64.9 Anemia, unspecified; I48.91 Unspecified atrial fibrillation; E87.6 Hypokalemia
CPT/HCPCS: 36415; 70450; 71045; 80048; 80061; 80307; 82550; 82553; 82962; 83735; 83880; 84484; 85007; 85025; 85520; 85610; 85730; 87641; 93005; 93010; G0378; A9270-GY; J1644; J2270; J2405; J3370; J3475

== ENCOUNTER 2020-03-03 19:15 | Emergency (ER) | payer MEDICAID ==
[2020-03-03 19:24] VITALS: BP 188/94
--- NOTE | 2020-03-03 20:43 | Emergency Department Report ---
ED ENT HPI - General Chief complaint: Earache Stated complaint: RT EAR PAIN Time Seen by Provider: 03/03/20 19:38 Source: patient Mode of arrival: Ambulatory Limitations: No Limitations - History of Present Illness Initial comments: Patient is a 54-year-old female presents emergency room with complaints of right ear pain that began 2 weeks ago. She states that she has had right ear drainage for 2 weeks. She states that she has pus and blood in the ear. She denies any fever, vomiting, chills. She denies getting anything into the ear. She states her urine feels muffled. She has a past medical history of CAD, PAD, CHF with defibrillator. She denies any allergies to medications. - Related Data Previous Rx's Medication Instructions Recorded Last Taken Type Vancomycin 125 mg PO Q6HR #5000 oralsyr 09/13/19 Unknown Rx Amiodarone [Cordarone 200 MG TAB] 200 mg PO BID #60 tablet 12/27/19 Unknown Rx Aspirin EC [Ecotrin] 325 mg PO QDAY #30 tablet 12/27/19 Unknown Rx AtorvaSTATin [Lipitor] 40 mg PO QHS #30 tablet 12/27/19 Unknown Rx Clopidogrel [Plavix] 75 mg PO QDAY #30 tablet 12/27/19 Unknown Rx ISOSORBIDE MONOnitrate [Imdur ER] 30 mg PO QDAY #30 tablet 12/27/19 Unknown Rx Metoprolol [Lopressor TAB] 50 mg PO Q8H #90 tablet 12/27/19 Unknown Rx NIFEdipine XL [Procardia Xl] 90 mg PO Q12HR #60 tablet 12/27/19 Unknown Rx Pantoprazole [Protonix TAB] 40 mg PO QDAY #30 tablet 12/27/19 Unknown Rx bisacodyL [Dulcolax tab] 10 mg PO DAILY PRN #14 tab 12/27/19 Unknown Rx lisinopriL [Zestril TAB] 40 mg PO QDAY #30 tablet 12/27/19 Unknown Rx Amoxicillin/Potassium Clav 1 each PO BID 10 Days #20 tablet 03/03/20 Unknown Rx [Augmentin 875-125 Tablet] Ofloxacin 0.3% [Floxin 0.3% Otic] 10 drops AD DAILY 7 Days #1 bottle 03/03/20 Unknown Rx Allergies Allergy/AdvReac Type Severity Reaction Status Date / Time No Known Allergies Allergy Verified 02/23/20 15:29 ED Dental HPI - General Chief complaint: Earache Stated complaint: RT EAR PAIN Time Seen by Provider: 03/03/20 19:38 Source: patient Mode of arrival: Ambulatory Limitations: No Limitations - Related Data Previous Rx's Medication Instructions Recorded Last Taken Type Vancomycin 125 mg PO Q6HR #5000 oralsyr 09/13/19 Unknown Rx Amiodarone [Cordarone 200 MG TAB] 200 mg PO BID #60 tablet 12/27/19 Unknown Rx Aspirin EC [Ecotrin] 325 mg PO QDAY #30 tablet 12/27/19 Unknown Rx AtorvaSTATin [Lipitor] 40 mg PO QHS #30 tablet 12/27/19 Unknown Rx Clopidogrel [Plavix] 75 mg PO QDAY #30 tablet 12/27/19 Unknown Rx ISOSORBIDE MONOnitrate [Imdur ER] 30 mg PO QDAY #30 tablet 12/27/19 Unknown Rx Metoprolol [Lopressor TAB] 50 mg PO Q8H #90 tablet 12/27/19 Unknown Rx NIFEdipine XL [Procardia Xl] 90 mg PO Q12HR #60 tablet 12/27/19 Unknown Rx Pantoprazole [Protonix TAB] 40 mg PO QDAY #30 tablet 12/27/19 Unknown Rx bisacodyL [Dulcolax tab] 10 mg PO DAILY PRN #14 tab 12/27/19 Unknown Rx lisinopriL [Zestril TAB] 40 mg PO QDAY #30 tablet 12/27/19 Unknown Rx Amoxicillin/Potassium Clav 1 each PO BID 10 Days #20 tablet 03/03/20 Unknown Rx [Augmentin 875-125 Tablet] Ofloxacin 0.3% [Floxin 0.3% Otic] 10 drops AD DAILY 7 Days #1 bottle 03/03/20 Unknown Rx Allergies Allergy/AdvReac Type Severity Reaction Status Date / Time No Known Allergies Allergy Verified 02/23/20 15:29 ED Review of Systems ROS: Stated complaint: RT EAR PAIN Other details as noted in HPI Comment: All other systems reviewed and negative ED Past Medical Hx - Past Medical History Hx Hypertension: Yes (Hx. of CHF) Hx CVA: Yes (TIA x 2) Hx Heart Attack/AMI: Yes Hx Congestive Heart Failure: Yes Hx Diabetes: No Hx Liver Disease: No Hx Renal Disease: No Hx Sickle Cell Disease: No Hx Seizures: No Hx Asthma: No Hx COPD: No Hx HIV: No Additional medical history: pt had an extenal defirillator life vest. PAD. Cardiac arrest - Surgical History Hx Pacemaker: No Hx Internal Defibrillator: No Additional Surgical History: x3, stint in left leg, right leg arterial anastomosis. - Social History Smoking Status: Never Smoker Substance Use Type: None - Medications Home Medications: Home Medications Medication Instructions Recorded Confirmed Last Taken Type Vancomycin 125 mg PO Q6HR #5000 oralsyr 09/13/19 12/03/19 Unknown Rx Amiodarone [Cordarone 200 MG TAB] 200 mg PO BID #60 tablet 12/27/19 Unknown Rx Aspirin EC [Ecotrin] 325 mg PO QDAY #30 tablet 12/27/19 Unknown Rx AtorvaSTATin [Lipitor] 40 mg PO QHS #30 tablet 12/27/19 Unknown Rx Clopidogrel [Plavix] 75 mg PO QDAY #30 tablet 12/27/19 Unknown Rx ISOSORBIDE MONOnitrate [Imdur ER] 30 mg PO QDAY #30 tablet 12/27/19 Unknown Rx Metoprolol [Lopressor TAB] 50 mg PO Q8H #90 tablet 12/27/19 Unknown Rx NIFEdipine XL [Procardia Xl] 90 mg PO Q12HR #60 tablet 12/27/19 Unknown Rx Pantoprazole [Protonix TAB] 40 mg PO QDAY #30 tablet 12/27/19 Unknown Rx bisacodyL [Dulcolax tab] 10 mg PO DAILY PRN #14 tab 12/27/19 Unknown Rx lisinopriL [Zestril TAB] 40 mg PO QDAY #30 tablet 12/27/19 Unknown Rx Amoxicillin/Potassium Clav 1 each PO BID 10 Days #20 tablet 03/03/20 Unknown Rx [Augmentin 875-125 Tablet] Ofloxacin 0.3% [Floxin 0.3% Otic] 10 drops AD DAILY 7 Days #1 bottle 03/03/20 Unknown Rx ED Physical Exam - General Limitations: No Limitations General appearance: alert, in no apparent distress - Head Head exam: Present: atraumatic, normocephalic - Eye Eye exam: Present: normal appearance - ENT ENT exam: Present: mucous membranes moist, other (left TM and canal are normal, right canal is edematous, erythematous, scaling, there is blood present in the canal and purulent drainage, unable to visualize right TM) - Respiratory Respiratory exam: Absent: respiratory distress, accessory muscle use - Neurological Exam Neurological exam: Present: alert, oriented X3 - Psychiatric Psychiatric exam: Present: normal affect, normal mood - Skin Skin exam: Present: warm, dry ED Course Vital Signs 03/03/20 19:22 Temperature 97.8 F Pulse Rate 85 Respiratory 18 Rate Blood Pressure 188/94 O2 Sat by Pulse 97 Oximetry ED Medical Decision Making - Medical Decision Making Patient is a 54-year-old female presents emergency room with complaints of right ear pain that began 2 weeks ago. She states that she has had right ear drainage for 2 weeks. She states that she has pus and blood in the ear. She denies any fever, vomiting, chills. She denies getting anything into the ear. She states her urine feels muffled. She has a past medical history of CAD, PAD, CHF with defibrillator. She denies any allergies to medications. VSS. on exam: left TM and canal are normal, right canal is edematous, erythematous, scaling, there is blood present in the canal and purulent drainage, unable to visualize right TM. Examination appears consistent with otitis externa. Patient given prescription for antibiotic eardrops and p.o. antibiotics. Advised patient that she will need to follow-up with a ENT doctor, she verbalized understanding. advised pt Please use medication as prescribed. Please follow-up with a ENT doctor. Please follow-up with a primary care doctor. Return to emergency room for any new or worsening symptoms. Critical care attestation.: If time is entered above; I have spent that time in minutes in the direct care of this critically ill patient, excluding procedure time. ED Disposition Clinical Impression: Otitis externa Qualifiers: Otitis externa type: unspecified type Chronicity: acute Laterality: right Qualified Code(s): H60.501 - Unspecified acute noninfective otitis externa, right ear Disposition: - TO HOME OR SELFCARE Is pt being admited?: No Does the pt Need Aspirin: No Condition: Stable Instructions: Otitis Externa (ED) Additional Instructions: Please use medication as prescribed. Please follow-up with a ENT doctor. Please follow-up with a primary care doctor. Return to emergency room for any new or worsening symptoms. Prescriptions: Amoxicillin/Potassium Clav [Augmentin 875-125 Tablet] 1 each PO BID 10 Days #20 tablet Ofloxacin 0.3% [Floxin 0.3% Otic] 10 drops AD DAILY 7 Days #1 bottle Referrals: PRIMARY CAREMD [Primary Care Provider] - 2-3 Days TIKA DEAN MD [Staff Physician] - 2-3 Days [facility]NT [facility] [Provider Group] - 2-3 Days Time of Disposition: 20:40 Print Language: ROMANIAN
== END 2020-03-03 20:47 | disposition home or self-care (01) ==
LOC: ED 19:15
DX: H60.91 Unspecified otitis externa, right ear (principal); I50.9 Heart failure, unspecified; I11.0 Hypertensive heart disease with heart failure; I25.2 Old myocardial infarction; Z86.73 Personal history of transient ischemic attack (TIA), and cerebral infarction without residual deficits; Z98.890 Other specified postprocedural states; Z79.2 Long term (current) use of antibiotics; Z79.899 Other long term (current) drug therapy
CPT/HCPCS: 99282

== ENCOUNTER 2020-03-19 01:40 | Observation (INO) | payer MEDICAID ==
[2020-03-19] MEDS ORDERED: cloNIDine 0.2 MG TAB ONE ×2 (03:28→12:06)
[2020-03-19] MEDS ORDERED: cloNIDine 0.2 MG TAB PO ONE (03:33)
[2020-03-19] MEDS ORDERED: hydrALAZINE 25 MG TAB ONE (05:28)
[2020-03-19] MEDS ORDERED: hydrALAZINE 25 MG TAB PO ONE (05:31)
[2020-03-19 07:52] LABS: Basophils # (Auto) 0.1 K/mm3 (0.0-0.1); Basophils % (Auto) 0.9 % (0.0-1.8); Eosinophils # (Auto) 0.2 K/mm3 (0.0-0.4); Eosinophils % (Auto) 3.4 % (0.0-4.3); Hematocrit 31.9 % (30.3-42.9); Hemoglobin 9.9 gm/dl (10.1-14.3); Lymphocytes # (Auto) 2.2 K/mm3 (1.2-5.4); Lymphocytes % (Auto) 38.5 % (13.4-35.0); Mean Corpuscular HGB Conc 31 % (30-34); Monocytes # (Auto) 0.4 K/mm3 (0.0-0.8); Monocytes % (Auto) 7.1 % (0.0-7.3); Platelet Count 305 K/mm3 (140-440); Red Blood Count 4.73 M/mm3 (3.65-5.03)
[2020-03-19 07:54] LABS: Mean Corpuscular Volume 67 fl (79-97); Red Cell Distribution Width 24.6 % (13.2-15.2)
[2020-03-19 08:03] LABS: INR 1.01 (0.87-1.13)
[2020-03-19 08:04] LABS: Partial Thromboplastin Time 34.2 Sec. (24.2-36.6)
[2020-03-19 08:07] LABS: Creatine Kinase MB 2.8 ng/mL (0.0-4.0)
[2020-03-19 08:10] LABS: BUN/Creatinine Ratio 17; Blood Urea Nitrogen 15 mg/dL (7-17); Calcium 9.6 mg/dL (8.4-10.2); Hemolysis Index 1
[2020-03-19 08:11] LABS: Alanine Aminotransferase 11 units/L (7-56); Albumin 4.2 g/dL (3.9-5)
[2020-03-19 08:12] LABS: Bilirubin,Direct < 0.2 mg/dL (0-0.2)
--- NOTE | 2020-03-19 08:24 | XRay Report ---
CHEST 1 VIEW 03/19/2020 7:14 AM INDICATION / CLINICAL INFORMATION: hypertension. COMPARISON: Chest x-ray 12/25/2019 FINDINGS: SUPPORT DEVICES: New left subclavian ICD lead has tip in right ventricle HEART / MEDIASTINUM: No significant abnormality. LUNGS / PLEURA: No significant pulmonary or pleural abnormality. No pneumothorax. ADDITIONAL FINDINGS: No significant additional findings. IMPRESSION: 1. No acute findings. Signer Name: Jose Adair MD Signed: 03/19/2020 8:19 AM Workstation Name: [id number]
--- NOTE | 2020-03-19 08:28 | Cat Scan Report ---
CT HEAD WITHOUT CONTRAST INDICATION / CLINICAL INFORMATION: headache. History of prior stroke. TECHNIQUE: All CT scans at this location are performed using CT dose reduction for ALARA by means of automated e xposure control. COMPARISON: Head CT 09/15/2019 FINDINGS: HEMORRHAGE: No evidence of intracranial hemorrhage or extra-axial fluid collection. EXTRA-AXIAL SPACES: Focal dilatation of cortical sulci is observed adjacent areas of encephalomalacia secondary to remote left middle cerebral artery involving left frontal lobe. Elsewhere, cortical sul ci are normally maintained. Sylvian fissures are bilaterally symmetrical. Basilar Cisterns have an un remarkable appearance. VENTRICULAR SYSTEM: The ventricular system is of normal size and configuration. CEREBRAL PARENCHYMA: Encephalomalacia is observed in the left frontal and parietal lobe secondary to remote left MCA infarction. No additional areas of abnormal brain parenchymal attenuation are identif ied. MIDLINE SHIFT OR HERNIATION: There is no mass effect. CEREBELLUM / BRAINSTEM: Brainstem and cerebellum have an unremarkable appearance. MIDLINE STRUCTURES:No abnormalities of the pituitary gland or pineal region are identified. INTRACRANIAL VESSELS: Advanced calcified atherosclerotic plaque is present along the cavernous segmen ts of the internal carotid arteries bilaterally. Similar findings are seen at the distal vertebral ar teries. ORBITS: visualized portions of the orbits have an unremarkable appearance. SOFT TISSUES of HEAD: No significant abnormality. CALVARIUM: Evaluation of bone windows reveals no abnormalities. PARANASAL SINUSES / MASTOID AIR CELLS: Paranasal sinuses are free from inflammatory mucosal disease. Is opacification of several mastoid air cells at the left mastoid tip which has developed since prior study.. ADDITIONAL FINDINGS: Incidental note is made of several small tentorial calcifications on the right. IMPRESSION: 1. Remote left MCA infarction with encephalomalacia and focal cortical sulcal dilatation involving le ft parietal and frontal lobes. 2. No acute intracranial abnormality. No interval change. Signer Name: Roman Epstein MD Signed: 03/19/2020 8:23 AM Workstation Name: [employer]
--- NOTE | 2020-03-19 09:21 | Emergency Department Report ---
ED General Adult HPI - General Chief complaint: Headache Stated complaint: HEAD/BACK PAIN Time Seen by Provider: 03/19/20 07:06 Source: patient Mode of arrival: Ambulatory Limitations: No Limitations - History of Present Illness Initial comments: This is a 54-year-old female who has never been to this facility before. She has had extensive medical care at [facility]. She has had a defibrillator placed within the last month. She is also had a vascular lab procedure. She has a vascular bypass to both her legs of some sort which required a procedure 2 weeks ago. She states that she is on "5 medicines for her blood pressure". Despite being in the hospital 1 month ago he states that she is out of her medicines now. Her hospice physician is in [facility]. She has no local physician. She seems to be stating that she is only taking 1 medicine for hypertension but it is somewhat vague about her compliance. Patient arrives in the emergency department today complaining of occipital headache. She states that she has had bad headaches before but this 1 is different due to its location. She seems to be stating she had a gradual onset of the headache last Sunday and that it has been persistent. She denies any focal neurological change, difficulty with speech or gait. Severity scale (0 -10): 0 - Related Data Previous Rx's Medication Instructions Recorded Last Taken Type Vancomycin 125 mg PO Q6HR #5000 oralsyr 09/13/19 Unknown Rx Amiodarone [Cordarone 200 MG TAB] 200 mg PO BID #60 tablet 12/27/19 Unknown Rx Aspirin EC [Ecotrin] 325 mg PO QDAY #30 tablet 12/27/19 Unknown Rx AtorvaSTATin [Lipitor] 40 mg PO QHS #30 tablet 12/27/19 Unknown Rx Clopidogrel [Plavix] 75 mg PO QDAY #30 tablet 12/27/19 Unknown Rx ISOSORBIDE MONOnitrate [Imdur ER] 30 mg PO QDAY #30 tablet 12/27/19 Unknown Rx Metoprolol [Lopressor TAB] 50 mg PO Q8H #90 tablet 12/27/19 Unknown Rx NIFEdipine XL [Procardia Xl] 90 mg PO Q12HR #60 tablet 12/27/19 Unknown Rx Pantoprazole [Protonix TAB] 40 mg PO QDAY #30 tablet 12/27/19 Unknown Rx bisacodyL [Dulcolax tab] 10 mg PO DAILY PRN #14 tab 12/27/19 Unknown Rx lisinopriL [Zestril TAB] 40 mg PO QDAY #30 tablet 12/27/19 Unknown Rx Amoxicillin/Potassium Clav 1 each PO BID 10 Days #20 tablet 03/03/20 Unknown Rx [Augmentin 875-125 Tablet] Ofloxacin 0.3% [Floxin 0.3% Otic] 10 drops AD DAILY 7 Days #1 bottle 03/03/20 Unknown Rx Allergies Allergy/AdvReac Type Severity Reaction Status Date / Time No Known Allergies Allergy Verified 02/23/20 15:29 ED Review of Systems ROS: Stated complaint: HEAD/BACK PAIN Other details as noted in HPI Constitutional: denies: chills, fever Eyes: denies: eye pain, vision change ENT: denies: ear pain, throat pain Respiratory: SOB with exertion. denies: cough, shortness of breath Cardiovascular: denies: chest pain, palpitations Endocrine: no symptoms reported Gastrointestinal: denies: abdominal pain, nausea, diarrhea Genitourinary: denies: urgency, dysuria Musculoskeletal: denies: back pain, arthralgia Skin: denies: rash, lesions Neurological: denies: headache, weakness, paresthesias Psychiatric: denies: anxiety, depression Hematological/Lymphatic: denies: easy bleeding, easy bruising ED Past Medical Hx - Past Medical History Previous Medical History?: Yes Hx Hypertension: Yes (Hx. of CHF) Hx CVA: Yes (TIA x 2) Hx Heart Attack/AMI: Yes Hx Congestive Heart Failure: Yes Hx Diabetes: No Hx Liver Disease: No Hx Renal Disease: No Hx Sickle Cell Disease: No Hx Seizures: No Hx Asthma: No Hx COPD: No Hx HIV: No Additional medical history: PAD - Surgical History Hx Pacemaker: No Hx Internal Defibrillator: Yes Additional Surgical History: x3, stent in left leg, right leg arterial anastomosis. - Social History Smoking Status: Current Every Day Smoker Substance Use Type: None - Medications Home Medications: Home Medications Medication Instructions Recorded Confirmed Last Taken Type Vancomycin 125 mg PO Q6HR #5000 oralsyr 09/13/19 12/03/19 Unknown Rx Amiodarone [Cordarone 200 MG TAB] 200 mg PO BID #60 tablet 12/27/19 Unknown Rx Aspirin EC [Ecotrin] 325 mg PO QDAY #30 tablet 12/27/19 Unknown Rx AtorvaSTATin [Lipitor] 40 mg PO QHS #30 tablet 12/27/19 Unknown Rx Clopidogrel [Plavix] 75 mg PO QDAY #30 tablet 12/27/19 Unknown Rx ISOSORBIDE MONOnitrate [Imdur ER] 30 mg PO QDAY #30 tablet 12/27/19 Unknown Rx Metoprolol [Lopressor TAB] 50 mg PO Q8H #90 tablet 12/27/19 Unknown Rx NIFEdipine XL [Procardia Xl] 90 mg PO Q12HR #60 tablet 12/27/19 Unknown Rx Pantoprazole [Protonix TAB] 40 mg PO QDAY #30 tablet 12/27/19 Unknown Rx bisacodyL [Dulcolax tab] 10 mg PO DAILY PRN #14 tab 12/27/19 Unknown Rx lisinopriL [Zestril TAB] 40 mg PO QDAY #30 tablet 12/27/19 Unknown Rx Amoxicillin/Potassium Clav 1 each PO BID 10 Days #20 tablet 03/03/20 Unknown Rx [Augmentin 875-125 Tablet] Ofloxacin 0.3% [Floxin 0.3% Otic] 10 drops AD DAILY 7 Days #1 bottle 03/03/20 Unknown Rx ED Physical Exam - General Limitations: Physical Limitation General appearance: alert, in no apparent distress - Head Head exam: Present: atraumatic, normocephalic - Eye Eye exam: Present: normal appearance. Absent: scleral icterus - ENT ENT exam: Present: mucous membranes moist - Neck Neck exam: Present: normal inspection. Absent: tenderness, meningismus - Respiratory Respiratory exam: Present: normal lung sounds bilaterally. Absent: respiratory distress - Cardiovascular Cardiovascular Exam: Present: regular rate, normal rhythm. Absent: systolic murmur, diastolic murmur, rubs, gallop - GI/Abdominal GI/Abdominal exam: Present: soft, normal bowel sounds, other. Absent: diste nded, tenderness, guarding - Extremities Exam Extremities exam: Present: other (Large endothelialized wound of the right medial calf. No active signs of vascular compromise of either great toe. No obvious superinfection.) - Back Exam Back exam: Present: normal inspection - Neurological Exam Neurological exam: Present: alert, oriented X3, CN II-XII intact, other (NIH score is 0). Absent: motor sensory deficit - Psychiatric Psychiatric exam: Present: normal affect, normal mood - Skin Skin exam: Present: warm, dry, other (See above). Absent: rash - Other Other exam information: Patient has diminished pulses to both her lower extremities. Feet are warm. T here is no evidence of acute vascular compromise. ED Course Vital Signs 03/19/20 03/19/20 03/19/20 03:05 03:35 05:24 Temperature 97.7 F Pulse Rate 122 H 122 H 117 H Respiratory 22 18 Rate Blood Pressure 223/119 223/119 Blood Pressure 235/134 [Left] O2 Sat by Pulse 95 96 Oximetry 03/19/20 03/19/20 05:32 07:36 Temperature Pulse Rate 117 H 108 H Respiratory Rate Blood Pressure 235/134 191/92 Blood Pressure [Left] O2 Sat by Pulse Oximetry - Reevaluation(s) Reevaluation #1: I got an NIH score of 0 on this patient although she does have previous MCA stroke. Hospitalist is with her now and the admitting process. 03/19/20 10:03 ED Medical Decision Making - Lab Data Result diagrams: 03/19/20 07:31 03/19/20 07:31 - EKG Data -: EKG Interpreted by Me EKG shows normal: sinus rhythm, axis - EKG Data Interpretation: nonspecific ST-T wave samaria (Left axis) - Radiology Data Radiology results: report reviewed Old left MCA stroke, no acute findings. Chest x-ray no acute findings. Critical care attestation.: If time is entered above; I have spent that time in minutes in the direct care of this critically ill patient, excluding procedure time. ED Disposition Clinical Impression: Accelerated hypertension Cardiomyopathy Qualifiers: Cardiomyopathy type: unspecified Qualified Code(s): I42.9 - Cardiomyopathy, unspecified Acute headache Qualifiers: Headache type: unspecified Intractability: not intractable Qualified Code(s): R51.9 - Headache, unspecified Disposition: 09 OP ADMIT IP TO THIS HOSP Is pt being admited?: Yes Does the pt Need Aspirin: Yes Condition: Stable Instructions: Hypertension (ED) Referrals: PRIMARY CARE, [Primary Care Provider] - 3-5 Days Time of Disposition: 10:04
[2020-03-19] MEDS ORDERED: MORPHINE 2 MG/1 ML INJ IV ONE (09:22)
[2020-03-19] MEDS ORDERED: ONDANSETRON 4 MG/2 ML INJ IV ONE (09:22)
[2020-03-19] MEDS ORDERED: ASPIRIN 81 MG TAB CHEW PO ONE (10:05)
--- NOTE | 2020-03-19 10:34 | History and Physical Report ---
History of Present Illness Date of examination: 03/19/20 Date of admission: 03/19/20 10:05 Chief complaint: "headache" History of present illness: 54-year-old female with systolic HF, s/p RI (2019), s/p AICD, (02/2020), s/p femoropopliteal bypass with recent left lower extremity fasciotomy for gangrene, s/p BLE stents (03/2020) atrial fibrillation, anemia, PAD, hypertension, CVA x2 (714, 2014), bilateral LE DVT, seizures, GERD, 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 She denies any focal neurological change, difficulty with speech or gait or vision changes. Initial vital signs in the emergency department revealed accelerated hypertension (initial BP 223/119). She denies any cough, chest pain, fever, chills, fatigue, night sweats, hemoptysis, recent weight loss, recent exposure to sick individuals or exposure to known COVID-19. She states she has been having dyspnea on exertion for the past couple weeks and endorses orthopnea. She states she went out of her medications yesterday and states she takes "5 medicines for her blood pressure". Work-up in the emergency department included a chest x-ray which showed no acute abnormalities and noted a new left subclavian ICD lead has tip in right ventricle , CT head which showed no acute abnormality per revealed a remote left MCA infarct with encephalomalacia with focal cortical sulcal dilation and left parietal and frontal lobes. She will be admitted to the hospital service with accelerated hypertension. Medication reconciled and advanced care planning to the bedside. Past History Past Medical History: anemia, CAD, DVT, GERD, hypertension, seizures, stroke, other (RI). denies: diabetes Past Surgical History: , Other (Bilateral lower extremity stents, defibrillator implantation) Social history: single, lives with family, smoking, full code. denies: alcohol abuse, prescription drug abuse, IV drug use Family history: hypertension Medications and Allergies Allergies Allergy/AdvReac Type Severity Reaction Status Date / Time No Known Allergies Allergy Verified 02/23/20 15:29 Home Medications Medication Instructions Recorded Confirmed Last Taken Type Vancomycin 125 mg PO Q6HR #5000 oralsyr 09/13/19 12/03/19 Unknown Rx Amiodarone [Cordarone 200 MG TAB] 200 mg PO BID #60 tablet 12/27/19 Unknown Rx Aspirin EC [Ecotrin] 325 mg PO QDAY #30 tablet 12/27/19 Unknown Rx AtorvaSTATin [Lipitor] 40 mg PO QHS #30 tablet 12/27/19 Unknown Rx Clopidogrel [Plavix] 75 mg PO QDAY #30 tablet 12/27/19 Unknown Rx ISOSORBIDE MONOnitrate [Imdur ER] 30 mg PO QDAY #30 tablet 12/27/19 Unknown Rx Metoprolol [Lopressor TAB] 50 mg PO Q8H #90 tablet 12/27/19 Unknown Rx NIFEdipine XL [Procardia Xl] 90 mg PO Q12HR #60 tablet 12/27/19 Unknown Rx Pantoprazole [Protonix TAB] 40 mg PO QDAY #30 tablet 12/27/19 Unknown Rx bisacodyL [Dulcolax tab] 10 mg PO DAILY PRN #14 tab 12/27/19 Unknown Rx lisinopriL [Zestril TAB] 40 mg PO QDAY #30 tablet 12/27/19 Unknown Rx Amoxicillin/Potassium Clav 1 each PO BID 10 Days #20 tablet 03/03/20 Unknown Rx [Augmentin 875-125 Tablet] Ofloxacin 0.3% [Floxin 0.3% Otic] 10 drops AD DAILY 7 Days #1 bottle 03/03/20 Unknown Rx Active Meds: Active Medications Acetaminophen (Tylenol) 650 mg PO Q4H PRN PRN Reason: Pain MILD(1-3)/Fever >100.5/MILLS Aspirin (Ecotrin) 325 mg PO QDAY PRABHU Atorvastatin Calcium (Lipitor) 40 mg PO QHS PRABHU Clopidogrel Bisulfate (Plavix) 75 mg PO QDAY PRABHU Isosorbide Mononitrate (Imdur) 30 mg PO QDAY PRABHU Lisinopril (Zestril) 40 mg PO QDAY PRABHU Metoprolol Tartrate (Metoprolol) 50 mg PO Q8H PRABHU Nifedipine (Procardia Xl) 90 mg PO Q12HR PRABHU Ondansetron HCl (Zofran) 4 mg IV Q8H PRN PRN Reason: Nausea And Vomiting Oxycodone/Acetaminophen (Percocet 5/325) 1 tab PO Q6H PRN PRN Reason: Pain, Moderate (4-6) Pantoprazole Sodium (Protonix) 40 mg PO QDAY PRABHU Senna (Senokot) 8.6 mg PO Q12HR PRABHU Sodium Chloride (Sodium Chloride Flush Syringe 10 Ml) 10 ml IV BID PRABHU Sodium Chloride (Sodium Chloride Flush Syringe 10 Ml) 10 ml IV PRN PRN PRN Reason: LINE FLUSH Review of Systems Constitutional: no weight loss, no weight gain, no fever, no chills, no sweats, no night sweats, no anorexia, no fatigue, no weakness, no malaise, no lethargy, no chronic headaches Ears, nose, mouth and throat: headache, no ear pain, no ear discharge, no tinnitis, no decreased hearing, no nose pain, no nasal congestion, no nasal discharge, no sinus pressure, no sinus pain, no epistaxis, no bleeding gums, no dental pain, no mouth pain, no dysphagia, no hoarseness, no sore throat, no post-nasal drip Cardiovascular: orthopnea, edema, shortness of breath, dyspnea on exertion, claudication, high blood pressure, no chest pain, no palpitations, no rapid/irregular heart beat, no syncope, no lightheadedness Respiratory: shortness of breath, dyspnea on exertion, no cough, no cough with sputum, no excessive sputum, no hemoptysis, no congestion, no wheezing, no pleurisy, no sleep apnea, no respiratory infections Gastrointestinal: no abdominal pain, no nausea, no vomiting, no diarrhea, no constipation, no change in bowel habits, no hematemesis, no BRBPR, no melena, no hematochezia, no loss of appetite Genitourinary Female: no pelvic pain, no urinary frequency, no urgency, no stress incontinence, no post void dribbling, no incomplete emptying, no urge incontinence, no hematuria, no nocturia Menstruation: no periods for 6 months Rectal: no pain, no incontinence, no bleeding, no itching, no hemorrhoids Musculoskeletal: no neck stiffness, no neck pain, no shooting arm pain, no arm numbness/tingling, no low back pain, no shooting leg pain, no leg numbness/ting ling, no redness of joints, no hot joints, no morning stiffness, no muscle weakness, no muscle cramps, no atrophy, no frequent falls, no fractures, no loss of height Integumentary: other (CDI surgical sites to BLE), no rash, no pruritis, no redness, no sores, no foot/leg ulcers Neurological: seizures, headaches, no head injury, no transient paralysis, no paralysis, no weakness, no parathesias, no numbness, no tingling, no vertigo, no migraines, no aphasia, no change in speech, no confusion, no memory loss, no changes in smell/taste, no gait dysfunction, no motor disturbance, no sensory deficit, no double vision, no loss of vision, no hearing difficulties Psychiatric: sleep disturbances, no anxiety, no memory loss, no change in sleep habits, no hypersomnia, no suicidal ideation, no depression Endocrine: cold intolerance, no polydipsia, no polyuria, no nocturia, no excessive sweating, no weight change, no increase in ring/shoe/hat size Hematologic/Lymphatic: easy bruising, no easy bleeding, no lymphadenopathy, no lymphedema Allergic/Immunologic: no urticaria, no allergic rhinitis, no wheezing Exam - Constitutional Vitals: Temp Pulse Resp BP Pulse Ox 97.7 F 108 H 18 191/92 96 03/19/20 03:05 03/19/20 07:36 03/19/20 05:24 03/19/20 07:36 03/19/20 05:24 General appearance: Present: no acute distress - EENT Eyes: Present: PERRL ENT: hearing intact, poor dentition - Neck Neck: Present: supple, normal ROM - Respiratory Respiratory effort: normal Respiratory: bilateral: CTA - Cardiovascular Rhythm: regular Heart Sounds: Present: S1 & S2. Absent: systolic murmur, diastolic murmur - Extremities Extremities: no ischemia, pulses intact, pulses symmetrical, No edema, normal temperature, normal color, Full ROM Peripheral Pulses: within normal limits - Abdominal General gastrointestinal: Present: soft, non-tender, normal bowel sounds - Integumentary Integumentary: Present: clear, warm, dry - Musculoskeletal Musculoskeletal: strength equal bilaterally - Psychiatric Psychiatric: appropriate mood/affect, cooperative - Neurologic Neurologic: CNII-XII intact, no focal deficits, moves all extremities - Allied Health Allied health notes reviewed: nursing HEART Score - HEART Score Troponin: Troponin T < 0.010 ng/mL (0.00-0.029) 03/19/20 07: Results - Labs CBC & Chem 7: 03/19/20 07:31 03/19/20 07: Labs: Laboratory Last Values WBC 5.8 K/mm3 (4.5-11.0) 03/19/20 07: RBC 4.73 M/mm3 (3.65-5.03) 03/19/20 07: Hgb 9.9 gm/dl (10.1-14.3) L 03/19/20: Hct 31.9 % (30.3-42.9) 03/19/20: MCV 67 fl (79-97) L 03/19/20: MCH 21 pg (28-32) L 03/19/20: MCHC 31 % (30-34) 03/19/20: RDW 24.6 % (13.2-15.2) H 03/19/20: Plt Count 305 K/mm3 (140-440) 03/19/20: Lymph % (Auto) 38.5 % (13.4-35.0) H 03/19/20: [place] % (Auto) 7.1 % (0.0-7.3) 03/19/20: Eos % (Auto) 3.4 % (0.0-4.3) 03/19/20: Baso % (Auto) 0.9 % (0.0-1.8) 03/19/20: Lymph # (Auto) 2.2 K/mm3 (1.2-5.4) 03/19/20: [place] # (Auto) 0.4 K/mm3 (0.0-0.8) 03/19/20: Eos # (Auto) 0.2 K/mm3 (0.0-0.4) 03/19/20: Baso # (Auto) 0.1 K/mm3 (0.0-0.1) 03/19/20: Seg Neutrophils % 50.1 % (40.0-70.0) 03/19/20: Seg Neutrophils # 2.9 K/mm3 (1.8-7.7) 03/19/20 07:31 PT 13.5 Sec. (12.2-14.9) 03/19/20 07:31 INR 1.01 (0.87-1.13) 03/19/20 07:31 APTT 34.2 Sec. (24.2-36.6) 03/19/20 07:31 Sodium 140 mmol/L (137-145) 03/19/20 07:31 Potassium 3.7 mmol/L (3.6-5.0) 03/19/20 07:31 Chloride 102.4 mmol/L (98-107) 03/19/20 07:31 Carbon Dioxide 26 mmol/L (22-30) 03/19/20 07:31 Anion Gap 15 mmol/L 03/19/20 07:31 BUN 15 mg/dL (7-17) 03/19/20 07:31 Creatinine 0.9 mg/dL (0.6-1.2) 03/19/20 07:31 Estimated GFR > 60 ml/min 03/19/20 07:31 BUN/Creatinine Ratio 17 % 03/19/20 07:31 Glucose 126 mg/dL (65-100) H 03/19/20 07:31 Calcium 9.6 mg/dL (8.4-10.2) 03/19/20 07:31 Total Bilirubin 0.20 mg/dL (0.1-1.2) 03/19/20 07:31 Direct Bilirubin < 0.2 mg/dL (0-0.2) 03/19/20 07:31 Indirect Bilirubin 0.0 mg/dL 03/19/20 07:31 AST 16 units/L (5-40) 03/19/20 07:31 ALT 11 units/L (7-56) 03/19/20 07:31 Alkaline Phosphatase 85 units/L (35-129) 03/19/20 07:31 Total Creatine Kinase 129 units/L (30-135) 03/19/20 07:31 CK-MB (CK-2) 2.8 ng/mL (0.0-4.0) 03/19/20 07:31 CK-MB (CK-2) Rel Index 2.1 (0-4) 03/19/20 07:31 Troponin T < 0.010 ng/mL (0.00-0.029) 03/19/20 07:31 NT-Pro-B Natriuret Pep 598.1 pg/mL (0-900) 03/19/20 07:31 Total Protein 9.0 g/dL (6.3-8.2) H 03/19/20 07:31 Albumin 4.2 g/dL (3.9-5) 03/19/20 07:31 Albumin/Globulin Ratio 0.9 % 03/19/20 07:31 - Imaging and Cardiology Chest x-ray: report reviewed, image reviewed CT Scan - head: report reviewed Assessment and Plan VTE prophylaxis?: Chemical, Mechanical Plan of care discussed with patient/family: Yes - Patient Problems (1) Accelerated hypertension Current Visit: Yes Status: Acute Plan to address problem: S/p clonidine, hydralazine, labetalol x2 in the ED Restarted home lisinopril, nifedipine, Imdur, clonidine Blood pressure monitoring every 2 hours until systolic blood pressure less than 180 Resume blood pressure monitoring per protocol (2) Acute headache Current Visit: Yes Status: Acute Qualifiers: Headache type: unspecified Intractability: not intractable Qualified Code(s): R51.9 - Headache, unspecified Plan to address problem: As needed analgesic Supportive care (3) Seizure Current Visit: Yes Status: Chronic Plan to address problem: Seizure precautions Continue home antiepileptic medication (4) CHF (congestive heart failure) Current Visit: Yes Status: Chronic Plan to address problem: Restart home medications Supportive care Does not appear to be in acute exacerbation 03/19 BNP 598 EF 40 to 45%, continue current management from prior visits (5) Coronary artery disease Current Visit: No Status: Chronic Qualifiers: Coronary Disease-Associated Artery/Lesion type: [place] artery [place] vs. transplanted heart: [place] heart Associated angina: angina presence unspecified Qualified Code(s): I25.10 - Atherosclerotic heart disease of [place] coronary artery without angina pectoris Plan to address problem: Continue home statin Supportive care (6) Paroxysmal A-fib Current Visit: Yes Status: Chronic Plan to address problem: Continue amiodarone and beta-blockers for rate control and suppression (7) DVT prophylaxis Current Visit: Yes Status: Acute Plan to address problem: SCD to bilateral extremities while in bed Heparin subcu (8) Full code status Current Visit: Yes Status: Acute
[2020-03-19] MEDS ORDERED: cloNIDine 0.2 MG TAB PO SCH ×4 (10:51→23:30)
[2020-03-19] MEDS ORDERED: ONDANSETRON 4 MG/2 ML INJ IV PRN (11:00)
[2020-03-19] MEDS ORDERED: ACETAMINOPHEN 325 MG TAB PO PRN (11:00)
[2020-03-19] MEDS ORDERED: LISINOPRIL 10 MG TAB PO SCH (11:00)
[2020-03-19] MEDS ORDERED: ASPIRIN 81 MG TAB CHEW ONE (12:05)
[2020-03-19] MEDS ORDERED: cloNIDine 0.1 MG TAB ONE (12:05)
[2020-03-19] MEDS ORDERED: METOPROLOL TARTRATE 25 MG TAB ONE (12:05)
[2020-03-19] MEDS ORDERED: LISINOPRIL 20 MG TAB ONE (12:06)
[2020-03-19] MEDS: LISINOPRIL 40 MG TAB PO SCH (12:10)
[2020-03-19] MEDS: SENNOSIDES 8.6 MG TAB PO SCH ×2 (12:10→22:53)
[2020-03-19] MEDS ORDERED: METOPROLOL TARTRATE 50 MG TAB ONE ×2 (12:12→18:57)
[2020-03-19] MEDS: METOPROLOL TARTRATE 50 MG TAB PO SCH ×2 (12:13→19:03)
[2020-03-19] MEDS: cloNIDine 0.2 MG TAB PO SCH ×3 (12:14→23:20)
[2020-03-19] MEDS: cloNIDine 0.1 MG TAB PO SCH ×2 (12:15→23:20)
[2020-03-19] MEDS ORDERED: oxyCODONE /ACETAMINOPHEN 5-325MG TAB ONE (18:56)
[2020-03-19] MEDS: oxyCODONE /ACETAMINOPHEN 5-325MG TAB PO PRN (19:03)
[2020-03-19] MEDS ORDERED: HYDROmorphone 1 MG/1 ML INJ IV PRN (19:37)
[2020-03-19] MEDS ORDERED: HYDROmorphone 2 MG/1 ML INJ IV ONE (19:39)
[2020-03-19] MEDS ORDERED: HYDROmorphone 2 MG/1 ML INJ ONE (19:40)
[2020-03-19] MEDS: AMIODARONE 200 MG TAB PO SCH (22:53)
[2020-03-19] MEDS: levETIRAcetam 500 MG TAB PO SCH (22:53)
[2020-03-19] MEDS: NIFEdipine XL 90 MG TAB PO SCH (22:53)
[2020-03-20] MEDS: METOPROLOL TARTRATE 50 MG TAB PO SCH ×2 (02:36→16:01)
[2020-03-20 06:46] LABS: Eosinophils # (Auto) 0.2 K/mm3 (0.0-0.4); Eosinophils % (Auto) 3.6 % (0.0-4.3); Hematocrit 27.7 % (30.3-42.9); Hemoglobin 8.6 gm/dl (10.1-14.3); Lymphocytes # (Auto) 1.5 K/mm3 (1.2-5.4); Lymphocytes % (Auto) 34.1 % (13.4-35.0); Mean Corpuscular HGB Conc 31 % (30-34); Monocytes # (Auto) 0.3 K/mm3 (0.0-0.8); Monocytes % (Auto) 7.6 % (0.0-7.3); Platelet Count 228 K/mm3 (140-440); Red Blood Count 4.09 M/mm3 (3.65-5.03)
[2020-03-20 06:56] LABS: Mean Corpuscular Volume 68 fl (79-97); Red Cell Distribution Width 24.3 % (13.2-15.2)
[2020-03-20 07:07] LABS: BUN/Creatinine Ratio 23; Blood Urea Nitrogen 18 mg/dL (7-17); Hemolysis Index 1
[2020-03-20] MEDS ORDERED: PANTOPRAZOLE 40 MG TAB PO SCH (10:00)
[2020-03-20] MEDS ORDERED: CLOPIDOGREL 75 MG TAB PO SCH (10:00)
[2020-03-20] MEDS ORDERED: ASPIRIN EC 325 MG TAB PO SCH (10:00)
--- NOTE | 2020-03-20 10:16 | Discharge Summary ---
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 Hospitalization Reason for admission: Hypertensive urgency Condition: Stable Pertinent studies: Head CT and chest x-ray Hospital course: 54-year-old female with systolic HF, s/p MN (2019), s/p AICD, (02/2020), s/p femoropopliteal bypass with recent left lower extremity fasciotomy for gangrene, s/p BLE stents (03/2020) atrial fibrillation, anemia, PAD, hypertension, CVA x2 (, 2014), bilateral LE DVT, seizures, GERD, 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 She denies any focal neurological change, difficulty with speech or gait or vision changes. Initial vital signs in the emergency department revealed accelerated hypertension (initial BP 223/119). She denies any cough, chest pain, fever, chills, fatigue, night sweats, hemoptysis, recent weight loss, recent exposure to sick individuals or exposure to known COVID-19. She states she has been having dyspnea on exertion for the past couple weeks and endorses orthopnea. She states she went out of her medications yesterday and states she takes "5 medicines for her blood pressure". [facility] which showed no acute abnormalities and noted a new left subclavian ICD lead has tip in right ventricle , CT head which showed no acute abnormality per revealed a remote left MCA infarct with encephalomalacia with focal cortical sulcal dilation and left parietal and frontal lobes. She will be admitted to the hospital service with accelerated hypertension. Medication reconciled and advanced care planning to the bedside. Patient was admitted to the floor and her blood pressure medications were resumed and blood pressures controlled. Patient's headache resolved when I saw her this morning and she wants to go home. Patient was given prescription for all her home medications and discharged. Disposition: - TO HOME OR SELFCARE Time spent for discharge: 32 minutes - Discharge Diagnoses (1) Hypertensive urgency Status: Acute (2) Acute headache Status: Acute Qualifiers: Headache type: unspecified Intractability: not intractable Qualified Code(s): R51.9 - Headache, unspecified Core Measure Documentation - Palliative Care Palliative Care/ Comfort Measures: Not Applicable - Core Measures Any of the following diagnoses?: none Exam - Physical Exam Narrative exam: Not in cardiopulmonary distress. The patient is obese. Vital signs as documented. Head exam is unremarkable. No scleral icterus . Neck is without jugular venous distension, thyromegaly, or carotid bruits. Lungs are clear to auscultation. Cardiac exam reveals regular rate and Rhythm. Abdominal exam reveals normal bowel sounds, nontender, no organomegaly. Extremities are nonedematous and both femoral and pedal pulses are normal. 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 No focal weakness. - Constitutional Vitals: Temp Pulse Resp BP Pulse Ox 97.2 F L 64 18 117/63 100 03/20/20 05:23 03/20/20 05:18 03/20/20 05:23 03/20/20 05:18 03/20/20 05:18 Plan Activity: no restrictions Weight Bearing Status: Full Weight Bearing Diet: low salt Additional Instructions: F/U at [facility] in 3-4 weeks Follow up with: PRIMARY CARE, [Primary Care Provider] - 3-5 Days Prescriptions: Amitriptyline [Elavil] 50 mg PO QHS #15 AtorvaSTATin [Lipitor] 40 mg PO QHS #30 tablet Clonidine HCl [Catapres] 0.3 mg PO BID #60 Amiodarone [Cordarone 200 MG TAB] 200 mg PO BID #60 tablet bisacodyL [Dulcolax tab] 10 mg PO DAILY PRN #14 tab PRN Reason: Constipation Aspirin EC [Ecotrin] 325 mg PO QDAY #30 tablet Gabapentin 300 mg PO BID #30 cap ISOSORBIDE MONOnitrate [Imdur ER] 30 mg PO QDAY #30 tablet Metoprolol [Lopressor TAB] 50 mg PO Q8H #90 tablet Clopidogrel [Plavix] 75 mg PO QDAY #30 tablet NIFEdipine XL [Procardia Xl] 90 mg PO Q12HR #60 tablet Pantoprazole [Protonix TAB] 40 mg PO QDAY #30 tablet Rivaroxaban [Xarelto] 15 mg PO QDAY #30 lisinopriL [Zestril TAB] 40 mg PO QDAY #30 tablet
[2020-03-20] MEDS: SENNOSIDES 8.6 MG TAB PO SCH (11:02)
[2020-03-20] MEDS: levETIRAcetam 500 MG TAB PO SCH (11:02)
[2020-03-20] MEDS: oxyCODONE /ACETAMINOPHEN 5-325MG TAB PO PRN (11:22)
[2020-03-20] MEDS: cloNIDine 0.2 MG TAB PO SCH (11:29)
[2020-03-20] MEDS: AMIODARONE 200 MG TAB PO SCH (11:31)
[2020-03-20] MEDS: LISINOPRIL 40 MG TAB PO SCH (11:32)
[2020-03-20] MEDS: NIFEdipine XL 90 MG TAB PO SCH (11:32)
[2020-03-20 16:01] VITALS: BP 117/60
== END 2020-03-20 13:30 | disposition home or self-care (01) ==
LOC: ED 01:40 → 3A 10:05
PROVIDERS: ADMIT Internal Medicine; ATTEND Internal Medicine
DX: I11.0 Hypertensive heart disease with heart failure (principal); I50.20 Unspecified systolic (congestive) heart failure; I42.9 Cardiomyopathy, unspecified; R51.9 Headache, unspecified; R56.9 Unspecified convulsions; I48.0 Paroxysmal atrial fibrillation; I25.10 Atherosclerotic heart disease of native coronary artery without angina pectoris; I25.2 Old myocardial infarction; K21.9 Gastro-esophageal reflux disease without esophagitis; F17.210 Nicotine dependence, cigarettes, uncomplicated; D64.9 Anemia, unspecified; Z86.718 Personal history of other venous thrombosis and embolism; Z98.891 History of uterine scar from previous surgery; Z86.73 Personal history of transient ischemic attack (TIA), and cerebral infarction without residual deficits; Z79.82 Long term (current) use of aspirin
CPT/HCPCS: 36415; 70450; 71045; 80048; 80076; 82550; 82553; 83036; 83880; 84484; 85025; 85610; 85730; 87641; 93005; 96374; 96375; 96376; 99285; 99406; A9270; G0378; J1170; J2270; J2405